=== PATIENT | male | born 1935 | race Caucasian/White ===

== ENCOUNTER 2020-01-12 15:24 | Emergency (ER) | payer MEDICARE, OTHER ==
[2020-01-12 15:44] VITALS: RESP 18; TEMP 98.2
--- NOTE | 2020-01-12 16:38 | ED ---
Fall HPI - General Chief Complaint: Fall Stated Complaint: fall/hit head-2 days ago Time Seen by Provider: 01/12/20 15:40 Source: patient, family Mode of arrival: wheelchair - History of Present Illness Initial Comments: Patient is an 84-year-old male with past history of A. fib, diabetes who presents emergency department after he fell out of bed. Patient reports that 2 days ago she was sleeping in the bed. His head on the floor. He was unable to get up due to chronic weakness in his lower extremities. Laid on the floor for several hours until a neighbor spotted him and got into the house to assist him up. He does take Plavix. He denies having any loss of consciousness. No headaches or visual changes. No neck pain. He had an appointment with his primary care office today. Because the reported blunt head trauma on Plavix I did recommend that he get a CT of his head. Triage note states that the patient is confused however the family at bedside denies this. Patient denies any injuries from his fall. Denies chest pain or shortness of breath. No abdominal pain. Does have some swelling to his lower extremity's. Reports that the right is worse than the left. Normally does not have lower extremity swelling. The right leg has become erythematous. They did place him on antibiotics at his primary care office. States she has not started them yet. Denies a history of DVT or PE. Does report a history of congestive heart failure. Denies any chest pain or shortness of breath. No fevers or chills. No alleviating, precipitating or modifying factors - Related Data Allergies Allergy/AdvReac Type Severity Reaction Status Date / Time No Known Allergies Allergy Verified 01/12/20 15:43 Review of Systems ROS Statement: Those systems with pertinent positive or pertinent negative responses have been documented in the HPI. ROS Other: All systems not noted in ROS Statement are negative. Past Medical History Past Medical History: Atrial Fibrillation, Coronary Artery Disease (CAD), Diabetes Mellitus, Hearing Disorder / Deafness, Hypertension, Myocardial Infarction (ID) Additional Past Medical History / Comment(s): Chronic right leg cellulitis History of Any Multi-Drug Resistant Organisms: None Reported Past Surgical History: No Surgical Hx Reported Past Psychological History: No Psychological Hx Reported Smoking Status: Former smoker Past Alcohol Use History: None Reported Past Drug Use History: None Reported General Exam Limitations: no limitations, physical limitation General appearance: alert, in no apparent distress Head exam: Present: atraumatic, normocephalic, normal inspection Eye exam: Present: normal appearance, PERRL, EOMI. Absent: scleral icterus, conjunctival injection, periorbital swelling ENT exam: Present: normal exam, mucous membranes moist Neck exam: Present: normal inspection. Absent: tenderness, meningismus, lymphadenopathy Respiratory exam: Present: normal lung sounds bilaterally. Absent: respiratory distress, wheezes, rales, rhonchi, stridor Cardiovascular Exam: Present: regular rate, normal rhythm, normal heart sounds. Absent: systolic murmur, diastolic murmur, rubs, gallop, clicks GI/Abdominal exam: Present: soft, normal bowel sounds. Absent: distended, tenderness, guarding, rebound, rigid Extremities exam: Present: full ROM, normal capillary refill, pedal edema (right > left. Right anterior kearns is red and erythematous). Absent: tenderness, joint swelling, calf tenderness Back exam: Present: normal inspection Neurological exam: Present: alert, oriented X3, CN II-XII intact Psychiatric exam: Present: normal affect, normal mood Skin exam: Present: warm, dry, intact, normal color. Absent: rash Course Vital Signs 01/12/20 01/12/20 15:36 18:48 Temperature 98.2 F 98.2 F Pulse Rate 79 70 Respiratory 18 18 Rate Blood Pressure 102/78 134/78 O2 Sat by Pulse 100 96 Oximetry Medical Decision Making - Medical Decision Making The patient is placed in room 16. A thorough history and physical exam was performed. Peripheral IV is established. Laboratory studies were conducted. Doppler ultrasound of the right lower extremity is performed. Patient also went for a CT of his cervical spine. Laboratory studies remarkable for a normal creatinine of 0.97. BNP is 438. Venous Doppler of the right lower extremity fails to demonstrate a DVT. CT of the patient's brain and cervical spine demonstrates age-related atrophic and chronic small vessel ischemia without acute intracranial process. No evidence for acute fracture subluxation in the cervical spine. Results are relayed to the patient. I did recommend compression dressings the lower extremities due to the edema. He was given a perception for Keflex 4 times a day for she do believe the patient needs to take for his overlying cellulitis. I will write him a prescription for compression stockings. Patient is to follow-up with his primary care physician. August require diuresis. If he has any new or worsening symptoms he should return to the emergency room. Patient was discharged home in stable condition - Lab Data Result diagrams: 01/12/20 16:07 01/12/20 16:07 Lab Results 01/12/20 01/12/20 01/12/20 Range/Units 16:07 16:07 16:07 WBC 7.2 (3.8-10.6) k/uL RBC 4.47 (4.30-5.90) m/uL Hgb 13.9 (13.0-17.5) gm/dL Hct 43.7 (39.0-53.0) % MCV 97.7 (80.0-100.0) fL MCH 31.2 (25.0-35.0) pg MCHC 31.9 (31.0-37.0) g/dL RDW 12.9 (11.5-15.5) % Plt Count 192 (150-450) k/uL Neutrophils % 80 % Lymphocytes % 11 % Monocytes % 5 % Eosinophils % 2 % Basophils % 0 % Neutrophils # 5.7 (1.3-7.7) k/uL Lymphocytes # 0.8 L (1.0-4.8) k/uL Monocytes # 0.4 (0-1.0) k/uL Eosinophils # 0.1 (0-0.7) k/uL Basophils # 0.0 (0-0.2) k/uL Sodium 136 L (137-145) mmol/L Potassium 4.7 (3.5-5.1) mmol/L Chloride 102 (98-107) mmol/L Carbon Dioxide 29 (22-30) mmol/L Anion Gap 5 mmol/L BUN 21 H (9-20) mg/dL Creatinine 0.97 (0.66-1.25) mg/dL Est GFR (CKD-EPI)AfAm 82 (>60 ml/min/1.73 sqM) Est GFR (CKD-EPI)NonAf 71 (>60 ml/min/1.73 sqM) Glucose 151 H (74-99) mg/dL Calcium 8.9 (8.4-10.2) mg/dL Total Bilirubin 1.2 (0.2-1.3) mg/dL AST 41 (17-59) U/L ALT 30 (4-49) U/L Alkaline Phosphatase 67 (38-126) U/L NT-Pro-B Natriuret Pep 438 pg/mL Total Protein 6.5 (6.3-8.2) g/dL Albumin 3.5 (3.5-5.0) g/dL Disposition Clinical Impression: Fall, Blunt head trauma, Swelling of lower extremity Disposition: HOME SELF-CARE Condition: Stable Instructions (If sedation given, give patient instructions): Leg Edema (ED), Fall Prevention (ED) Additional Instructions: Rest and elevate your legs. Wear the compression stockings. Follow up with your primary care. They may consider placing you on a diuretic (water pill) for your lower extremity swelling. Take antibiotic as directed. Return to the emergency room for any new or worsening symptoms Is patient prescribed a controlled substance at d/c from ED?: No Referrals: Mery Hooper MD [Primary Care Provider] - 1-2 days Time of Disposition: 18:23
--- NOTE | 2020-01-12 16:52 | CT ---
EXAMINATION TYPE: CT brain niurka turk DATE OF EXAM: 01/12/2020 COMPARISON: None HISTORY: Fall [address] DLP: 1843.[address] of the brain was performed. The ventricles, basal cisterns and sulci overlying the cerebral convexities demonstrate mild to moder ate enlargement. There is no evidence for intracranial hemorrhage or sulcal effacement. There is decreased attenuatio n about the periventricular white matter and deep white matter of both cerebral hemispheres, compatib le with chronic small vessel ischemia. No mass effects are seen. If symptoms persist consider MRI. Osseous calvarium is intact. IMPRESSION: 1. Age related atrophic and chronic small vessel ischemic change without acute intracranial process seen at this time. CT Cervical Spine: Unenhanced CT of the cervical spine was performed with bone and soft tissue window settings submitted . Coronal and sagittal reconstruction is obtained. There is normal alignment and prevertebral soft tissues. No evidence for acute cervical fracture . Scattered degenerative disc disease and spondylosis. Biapical scarring. IMPRESSION: 1. No evidence for acute fracture or subluxation of the cervical spine.
--- NOTE | 2020-01-12 17:18 | US ---
EXAMINATION TYPE: US venous doppler duplex LE RT DATE OF EXAM: 01/12/2020 5:11 PM COMPARISON: NONE CLINICAL HISTORY: swelling, redness. SIDE PERFORMED: Right TECHNIQUE: The lower extremity deep venous system is examined utilizing real time linear array sonog mari with graded compression, doppler sonography and color-flow sonography. VESSELS IMAGED: External Iliac Vein (EIV) Common Femoral Vein Deep Femoral Vein Greater Saphenous Vein * Femoral Vein Popliteal Vein Small Saphenous Vein * Proximal Calf Veins (* superficial vessels) There is normal flow, compressibility, vascular waveforms. Right Leg: Negative for DVT IMPRESSION: No evident deep venous thrombosis at or above the right knee
[2020-01-12 17:20] LABS: Basophils % (A) 0 %; Eosinophils # (A) 0.1 k/uL (0-0.7); Eosinophils % (A) 2 %; HCT 43.7 % (39.0-53.0); HGB 13.9 gm/dL (13.0-17.5); Lymphocytes # (A) 0.8 k/uL (1.0-4.8); Lymphocytes % (A) 11 %; MCH 31.2 pg (25.0-35.0); MCHC 31.9 g/dL (31.0-37.0); MCV 97.7 fL (80.0-100.0); Mean Platelet Volume 7.4; Monocytes # (A) 0.4 k/uL (0-1.0); Monocytes % (A) 5 %; Neutrophils # (A) 5.7 k/uL (1.3-7.7); Neutrophils % (A) 80 %; Platelet Count 192 k/uL (150-450); RBC 4.47 m/uL (4.30-5.90); RDW 12.9 % (11.5-15.5); WBC 7.2 k/uL (3.8-10.6)
[2020-01-12 17:41] LABS: Albumin 3.5 g/dL (3.5-5.0); Calcium 8.9 mg/dL (8.4-10.2); Potassium 4.7 mmol/L (3.5-5.1); Total Bilirubin 1.2 mg/dL (0.2-1.3); Total Protein 6.5 g/dL (6.3-8.2)
[2020-01-12 18:49] VITALS: BP 134/78; PULSE 70
== END 2020-01-12 18:49 | disposition home or self-care (01) ==
LOC: EC 15:24
DX: S09.90XA Unspecified injury of head, initial encounter (principal); M79.89 Other specified soft tissue disorders; G31.1 Senile degeneration of brain, not elsewhere classified; I67.82 Cerebral ischemia; H91.90 Unspecified hearing loss, unspecified ear; I25.2 Old myocardial infarction; Z87.891 Personal history of nicotine dependence; W06.XXXA Fall from bed, initial encounter; Y93.84 Activity, sleeping; Y92.009 Unspecified place in unspecified non-institutional (private) residence as the place of occurrence of the external cause
CPT/HCPCS: 36415; 70450; 72125; 80053; 83880; 85025; 99284

== ENCOUNTER 2020-07-09 20:39 | Emergency (ER) | payer OTHER ==
--- NOTE | 2020-07-09 21:37 | ED ---
Weakness HPI - General Chief complaint: Weakness Stated complaint: Weakness Time Seen by Provider: 07/09/20 21:01 Source: patient, EMS Mode of arrival: EMS Limitations: no limitations - History of Present Illness Initial comments: This patient is an 85-year-old man who is here to be evaluated for generalized weakness and fatigue. Most of the history comes from the patient's daughter. She states that she checks on him regularly but he currently lives alone. When I interview the patient, he states that he is just here for checkup. He states that he is feeling pretty well. He denies pain. He denies dyspnea. Patient's daughter states that she suspects he has been having low-grade fevers going back probably about 3 days. He has been less active. Today he did not get up out of his chair. The patient in addition appears to not have urinated today and she is concerned about possibility of dehydration. In addition patient's blood sugars of been running high up to nearly 200 this morning and then when rechecked tonight down to 48. Patient's daughter has not noted any focal weakness, just that the patient appears to be generally weak, fatigued, and somewhat confused. Complaint: generalized weakness, lack of energy -: days(s) Location: generalized Improves with: none Worsens with: none - Related Data Allergies Allergy/AdvReac Type Severity Reaction Status Date / Time No Known Allergies Allergy Verified 01/12/20 15:43 Review of Systems ROS Statement: Those systems with pertinent positive or pertinent negative responses have been documented in the HPI. ROS Other: All systems not noted in ROS Statement are negative. Constitutional: Reports: fever, weakness. Denies: chills Eyes: Denies: vision change Respiratory: Reports: wheezes. Denies: cough, dyspnea Cardiovascular: Denies: chest pain, orthopnea, edema Gastrointestinal: Denies: abdominal pain, vomiting, diarrhea Genitourinary: Denies: dysuria, hematuria Musculoskeletal: Denies: back pain Skin: Denies: rash Neurological: Denies: headache, weakness, numbness Past Medical History Past Medical History: Atrial Fibrillation, Coronary Artery Disease (CAD), Diabetes Mellitus, Hearing Disorder / Deafness, Hypertension, Myocardial Infarction ([place]) Additional Past Medical History / Comment(s): Chronic right leg cellulitis History of Any Multi-Drug Resistant Organisms: None Reported Past Surgical History: No Surgical Hx Reported Past Psychological History: No Psychological Hx Reported Smoking Status: Former smoker Past Alcohol Use History: None Reported Past Drug Use History: None Reported General Exam Limitations: no limitations General appearance: alert, in no apparent distress Head exam: Present: atraumatic, normocephalic Eye exam: Present: normal appearance. Absent: scleral icterus, conjunctival injection ENT exam: Present: mucous membranes dry, normal external ear exam, other (Cerumen bilaterally) Neck exam: Present: normal inspection, full ROM. Absent: meningismus Respiratory exam: Present: wheezes (Trace wheeze throughout). Absent: respiratory distress, rales, rhonchi, stridor, accessory muscle use, decreased breath sounds Cardiovascular Exam: Present: regular rate, normal rhythm, normal heart sounds. Absent: systolic murmur, diastolic murmur, rubs, gallop GI/Abdominal exam: Present: soft, hernia (There is an umbilical hernia which is soft, reducible, nontender). Absent: distended, tenderness, guarding, rebound, rigid, mass Extremities exam: Present: normal inspection, normal capillary refill. Absent: pedal edema, calf tenderness Back exam: Present: normal inspection. Absent: CVA tenderness (R), CVA tenderness (L) Neurological exam: Present: alert. Absent: oriented X3 (Patient is oriented person, recognizes he is in a medical facility, could not state the date), motor sensory deficit Skin exam: Present: warm, dry, intact, normal color. Absent: rash Course Vital Signs 07/09/20 07/10/20 20:42 01:46 Temperature 98.6 F 98.9 F Pulse Rate 78 87 Respiratory 20 18 Rate Blood Pressure 138/77 117/46 O2 Sat by Pulse 96 95 Oximetry Medical Decision Making - Medical Decision Making Patient is an 85-year-old man with covid 19 infection. I discussed risks and benefits of administering monoclonal antibodies, and at this point they declined to have this therapy. Discussed admission for observation given his generalized weakness, but the patient was feeling better after fever came down and fluids. They will continue as outpatient, discussed appropriate further care and return parameters. - Lab Data Result diagrams: 07/09/20 22:05 07/09/20 22:05 Lab Results 07/09/20 07/09/20 07/09/20 Range/Units 22:05 22:05 22:05 WBC 3.1 L (3.8-10.6) k/uL RBC 4.47 (4.30-5.90) m/uL Hgb 14.4 (13.0-17.5) gm/dL Hct 41.6 (39.0-53.0) % MCV 92.9 (80.0-100.0) fL MCH 32.2 (25.0-35.0) pg MCHC 34.7 (31.0-37.0) g/dL RDW 13.8 (11.5-15.5) % Plt Count 88 L (150-450) k/uL MPV 8.6 Lymphocytes % 11 % Monocytes % 6 % Eosinophils % 1 % Basophils % 1 % Neutrophils # 2.5 (1.3-7.7) k/uL Lymphocytes # 0.3 L (1.0-4.8) k/uL Monocytes # 0.2 (0-1.0) k/uL Eosinophils # 0.0 (0-0.7) k/uL Basophils # 0.0 (0-0.2) k/uL Manual Slide Review Performed Anisocytosis (manual) Present PT 9.9 (9.0-12.0) sec INR 0.9 (<1.2) APTT 26.2 (22.0-30.0) sec Sodium 131 L (137-145) mmol/L Potassium 4.9 (3.5-5.1) mmol/L Chloride 98 (98-107) mmol/L Carbon Dioxide 28 (22-30) mmol/L Anion Gap 5 mmol/L BUN 18 (9-20) mg/dL Creatinine 0.85 (0.66-1.25) mg/dL Est GFR (CKD-EPI)AfAm >90 (>60 ml/min/1.73 sqM) Est GFR (CKD-EPI)NonAf 78 (>60 ml/min/1.73 sqM) Glucose 145 H (74-99) mg/dL Plasma Lactic Acid Esteban (0.7-2.0) mmol/L Calcium 8.4 (8.4-10.2) mg/dL Magnesium 1.8 (1.6-2.3) mg/dL Total Bilirubin 0.9 (0.2-1.3) mg/dL AST 56 (17-59) U/L ALT 24 (4-49) U/L Alkaline Phosphatase 45 (38-126) U/L Troponin I (0.000-0.034) ng/mL NT-Pro-B Natriuret Pep pg/mL Total Protein 6.5 (6.3-8.2) g/dL Albumin 3.4 L (3.5-5.0) g/dL Coronavirus (PCR) (Not Detectd) 07/09/20 07/09/20 07/09/20 Range/Units 22:05 22:05 22:05 WBC (3.8-10.6) k/uL RBC (4.30-5.90) m/uL Hgb (13.0-17.5) gm/dL Hct (39.0-53.0) % MCV (80.0-100.0) fL MCH (25.0-35.0) pg MCHC (31.0-37.0) g/dL RDW (11.5-15.5) % Plt Count (150-450) k/uL MPV Lymphocytes % % Monocytes % % Eosinophils % % Basophils % % Neutrophils # (1.3-7.7) k/uL Lymphocytes # (1.0-4.8) k/uL Monocytes # (0-1.0) k/uL Eosinophils # (0-0.7) k/uL Basophils # (0-0.2) k/uL Manual Slide Review Anisocytosis (manual) PT (9.0-12.0) sec INR (<1.2) APTT (22.0-30.0) sec Sodium (137-145) mmol/L Potassium (3.5-5.1) mmol/L Chloride (98-107) mmol/L Carbon Dioxide (22-30) mmol/L Anion Gap mmol/L BUN (9-20) mg/dL Creatinine (0.66-1.25) mg/dL Est GFR (CKD-EPI)AfAm (>60 ml/min/1.73 sqM) Est GFR (CKD-EPI)NonAf (>60 ml/min/1.73 sqM) Glucose (74-99) mg/dL Plasma Lactic Acid Esteban 1.6 (0.7-2.0) mmol/L Calcium (8.4-10.2) mg/dL Magnesium (1.6-2.3) mg/dL Total Bilirubin (0.2-1.3) mg/dL AST (17-59) U/L ALT (4-49) U/L Alkaline Phosphatase (38-126) U/L Troponin I 0.015 (0.000-0.034) ng/mL NT-Pro-B Natriuret Pep 517 pg/mL Total Protein (6.3-8.2) g/dL Albumin (3.5-5.0) g/dL Coronavirus (PCR) (Not Detectd) 07/09/20 Range/Units 22:05 WBC (3.8-10.6) k/uL RBC (4.30-5.90) m/uL Hgb (13.0-17.5) gm/dL Hct (39.0-53.0) % MCV (80.0-100.0) fL MCH (25.0-35.0) pg MCHC (31.0-37.0) g/dL RDW (11.5-15.5) % Plt Count (150-450) k/uL MPV Lymphocytes % % Monocytes % % Eosinophils % % Basophils % % Neutrophils # (1.3-7.7) k/uL Lymphocytes # (1.0-4.8) k/uL Monocytes # (0-1.0) k/uL Eosinophils # (0-0.7) k/uL Basophils # (0-0.2) k/uL Manual Slide Review Anisocytosis (manual) PT (9.0-12.0) sec INR (<1.2) APTT (22.0-30.0) sec Sodium (137-145) mmol/L Potassium (3.5-5.1) mmol/L Chloride (98-107) mmol/L Carbon Dioxide (22-30) mmol/L Anion Gap mmol/L BUN (9-20) mg/dL Creatinine (0.66-1.25) mg/dL Est GFR (CKD-EPI)AfAm (>60 ml/min/1.73 sqM) Est GFR (CKD-EPI)NonAf (>60 ml/min/1.73 sqM) Glucose (74-99) mg/dL Plasma Lactic Acid Esteban (0.7-2.0) mmol/L Calcium (8.4-10.2) mg/dL Magnesium (1.6-2.3) mg/dL Total Bilirubin (0.2-1.3) mg/dL AST (17-59) U/L ALT (4-49) U/L Alkaline Phosphatase (38-126) U/L Troponin I (0.000-0.034) ng/mL NT-Pro-B Natriuret Pep pg/mL Total Protein (6.3-8.2) g/dL Albumin (3.5-5.0) g/dL Coronavirus (PCR) Detected A (Not Detectd) Disposition Clinical Impression: COVID-19 Disposition: HOME SELF-CARE Condition: Good Instructions (If sedation given, give patient instructions): Coronavirus Disease 2019 (COVID-19) Is patient prescribed a controlled substance at d/c from ED?: No Referrals: Donna Jimenez DO [Primary Care Provider] - 1-2 days
--- NOTE | 2020-07-09 21:47 | XR ---
EXAMINATION TYPE: XR chest 1V portable DATE OF EXAM: 07/09/2020 COMPARISON: NONE HISTORY: Weakness confusion TECHNIQUE: Single view FINDINGS: Heart is probably enlarged. There is some patchy pulmonary interstitial edema. Small pleura l effusions are possible. Bony thorax is intact IMPRESSION: There is some pulmonary interstitial edema that could relate to heart failure or acute in terstitial pneumonia.
[2020-07-09 22:27] LABS: ALT 24 U/L (4-49); AST 56 U/L (17-59); African American GFR (CKD) >90 (>60 ml/min/1.73 sqM); Albumin 3.4 g/dL (3.5-5.0); Alkaline Phosphatase 45 U/L (38-126); Anion Gap 5 mmol/L; Blood Urea Nitrogen 18 mg/dL (9-20); Calcium 8.4 mg/dL (8.4-10.2); Carbon Dioxide 28 mmol/L (22-30); Chloride 98 mmol/L (98-107); Glucose 145 mg/dL (74-99); Magnesium 1.8 mg/dL (1.6-2.3); Non-African American GFR(CKD) 78 (>60 ml/min/1.73 sqM); Sodium 131 mmol/L (137-145); Total Bilirubin 0.9 mg/dL (0.2-1.3); Total Protein 6.5 g/dL (6.3-8.2)
[2020-07-09 22:29] LABS: Potassium 4.9 mmol/L (3.5-5.1)
[2020-07-09 22:33] LABS: INR 0.9 (<1.2); Partial Thromboplastin Time 26.2 sec (22.0-30.0); Prothrombin Time 9.9 sec (9.0-12.0)
[2020-07-09 23:03] LABS: Basophils % (A) 1 %; Eosinophils % (A) 1 %; HCT 41.6 % (39.0-53.0); HGB 14.4 gm/dL (13.0-17.5); Lymphocytes # (A) 0.3 k/uL (1.0-4.8); Lymphocytes % (A) 11 %; MCH 32.2 pg (25.0-35.0); MCHC 34.7 g/dL (31.0-37.0); MCV 92.9 fL (80.0-100.0); Mean Platelet Volume 8.6; Monocytes # (A) 0.2 k/uL (0-1.0); Monocytes % (A) 6 %; Neutrophils # (A) 2.5 k/uL (1.3-7.7); RBC 4.47 m/uL (4.30-5.90); RDW 13.8 % (11.5-15.5); WBC 3.1 k/uL (3.8-10.6)
[2020-07-10 00:39] LABS: Platelet Count 88 k/uL (150-450)
[2020-07-10 00:40] LABS: Anisocytosis (M) Present
[2020-07-10 01:47] VITALS: BP 117/46; PULSE 87; RESP 18; TEMP 98.9
== END 2020-07-10 01:47 | disposition home or self-care (01) ==
LOC: EC 20:39
DX: U07.1 COVID-19 (principal); I48.91 Unspecified atrial fibrillation; I25.10 Atherosclerotic heart disease of native coronary artery without angina pectoris; E11.9 Type 2 diabetes mellitus without complications; I10 Essential (primary) hypertension; I25.2 Old myocardial infarction; Z87.891 Personal history of nicotine dependence
CPT/HCPCS: 71045; 80053; 83605; 83735; 83880; 84484; 85025; 85610; 85730; 87635; 93005; 99285

== ENCOUNTER 2021-02-22 20:30 | Inpatient (IN) | payer MEDICARE ==
--- NOTE | 2021-02-22 21:44 | XR ---
EXAMINATION TYPE: XR chest 2V DATE OF EXAM: 02/22/2021 CLINICAL HISTORY: Weakness. TECHNIQUE: Frontal and lateral view of the chest. COMPARISON: 07/09/2020 FINDINGS: Redemonstrated cardiomegaly. Pulmonary vasculature is normal. There is no focal air space o pacity. No pleural effusion. No pneumothorax seen. No acute displaced osseous fracture. Degenerative changes of the right shoulder and spine. IMPRESSION: Redemonstrated cardiomegaly. No acute pulmonary process.
--- NOTE | 2021-02-22 21:47 | XR ---
EXAMINATION TYPE: XR shoulder complete RT DATE OF EXAM: 02/22/2021 CLINICAL HISTORY: fall. TECHNIQUE: Internal rotation, external rotation, and scapular Y views of the right shoulder are obtai sandro. COMPARISON: None FINDINGS: There is no acute fracture/dislocation evident. Degenerative change of the glenohumeral an d acromial clavicular joint. Normal osseous mineralization. The overlying soft tissue appears unremar kable. IMPRESSION: No acute fracture or dislocation of the right shoulder.
--- NOTE | 2021-02-22 22:00 | CT ---
EXAMINATION TYPE: CT brain wo con DATE OF EXAM: 02/22/2021 HISTORY: ams, multiple recent falls. CT DLP: 1235.4 mGycm. Automated Exposure Control for Dose Reduction was Utilized. TECHNIQUE: CT scan of the head is performed without contrast. COMPARISON: 01/12/2020 FINDINGS: There is no acute intracranial hemorrhage, midline shift, or mass effect identified. No abnormal extr a-axial fluid collection. Generalized volume loss. There is redemonstrated prominence of the ventricl es unchanged versus 01/12/2020. Patchy white matter hypodensities likely sequela of chronic microvascu lar ischemic change. No depressed arterial fracture. Visualized sinuses and mastoid air cells are ernie ar. IMPRESSION: No acute intracranial hemorrhage, midline shift, or mass effect.
[2021-02-22 22:21] LABS: Basophils % (A) 0 %; Eosinophils % (A) 1 %; HCT 39.9 % (39.0-53.0); HGB 13.6 gm/dL (13.0-17.5); Lymphocytes # (A) 0.7 k/uL (1.0-4.8); Lymphocytes % (A) 11 %; MCH 32.4 pg (25.0-35.0); MCHC 34.1 g/dL (31.0-37.0); Mean Platelet Volume 7.6; Monocytes # (A) 0.4 k/uL (0-1.0); Monocytes % (A) 7 %; Neutrophils # (A) 4.9 k/uL (1.3-7.7); Neutrophils % (A) 79 %; Platelet Count 169 k/uL (150-450); RDW 14.1 % (11.5-15.5); WBC 6.2 k/uL (3.8-10.6)
--- NOTE | 2021-02-22 22:23 | ED ---
General Adult HPI - General Chief complaint: Fall Stated complaint: Fall, Weakness Time Seen by Provider: 02/22/21 20:35 Source: patient, family, EMS, RN notes reviewed, old records reviewed Mode of arrival: EMS - History of Present Illness Initial comments: 85 yo male presenting with multiple falls, generalized weakness. The weakness has progressed over the course of several weeks. He had 2 falls today. His daughter who is at bedside to state he had a little it of mild effusion but this is mostly resolved. No reported fever. The patient self complains of some right shoulder pain. No head or neck trauma. No abdominal pain nausea vomiting. - Related Data Home Medications Medication Instructions Recorded Confirmed Ascorbic Acid [Vitamin C] 500 mg PO DAILY 02/22/21 02/22/21 Aspirin EC [Ecotrin Low Dose] 81 mg PO DAILY 02/22/21 02/22/21 Cholecalciferol [Vitamin D3 (25 50 mcg PO DAILY 02/22/21 02/22/21 Mcg = 1000 Iu)] Finasteride [Proscar] 5 mg PO DAILY 02/22/21 02/22/21 Gabapentin [Neurontin] 100 mg PO TID 02/22/21 02/22/21 Insulin Aspart [NovoLOG Flexpen] 40 units SQ TID-W/MEALS 02/22/21 02/22/21 Insulin Detemir [Levemir Flextouch 45 units SQ BID 02/22/21 02/22/21 Pen] Liraglutide [Victoza 3-Jarred] 1.2 mg SQ DAILY 02/22/21 02/22/21 Multivitamins, Thera [Multivitamin 1 tab PO DAILY 02/22/21 02/22/21 (formulary)] [place]-3 Fatty Acids/Fish Oil [Fish 1 cap PO DAILY 02/22/21 02/22/21 Oil 1,000 mg Softgel] Sertraline [Zoloft] 50 mg PO DAILY 02/22/21 02/22/21 Tamsulosin HCl [Flomax] 0.4 mg PO DAILY 02/22/21 02/22/21 Allergies Allergy/AdvReac Type Severity Reaction Status Date / Time Penicillins Allergy Unknown Verified 02/22/21 23:01 Sulfa (Sulfonamide Allergy Unknown Verified 02/22/21 23:01 Antibiotics) Review of Systems ROS Statement: Those systems with pertinent positive or pertinent negative responses have been documented in the HPI. ROS Other: All systems not noted in ROS Statement are negative. Past Medical History Past Medical History: Atrial Fibrillation, Coronary Artery Disease (CAD), Diabetes Mellitus, Hearing Disorder / Deafness, Hypertension, Myocardial Infarction ([place]) Additional Past Medical History / Comment(s): Chronic right leg cellulitis History of Any Multi-Drug Resistant Organisms: None Reported Past Surgical History: No Surgical Hx Reported Past Psychological History: No Psychological Hx Reported Smoking Status: Former smoker Past Alcohol Use History: None Reported Past Drug Use History: None Reported General Exam General appearance: alert, in no apparent distress Head exam: Present: atraumatic, normocephalic Eye exam: Present: normal appearance, PERRL ENT exam: Present: mucous membranes dry Neck exam: Absent: normal inspection, tenderness, meningismus Respiratory exam: Present: normal lung sounds bilaterally. Absent: respiratory distress, wheezes Cardiovascular Exam: Present: regular rate, irregular rhythm GI/Abdominal exam: Present: soft. Absent: distended, tenderness, guarding Extremities exam: Present: normal capillary refill, other (Some chronic venous stasis) Neurological exam: Present: alert, oriented X3, CN II-XII intact. Absent: motor sensory deficit Psychiatric exam: Present: normal affect, normal mood Skin exam: Present: warm, dry, intact Course Vital Signs 02/22/21 21:30 Temperature 97.8 F Pulse Rate 85 Respiratory 16 Rate Blood Pressure 129/71 O2 Sat by Pulse 97 Oximetry EKG Findings - EKG Comments: EKG Findings:: EKG: Atrial fibrillation, rate of 69, QRS duration 88, QTC 435, no ST segment elevation Medical Decision Making - Medical Decision Making 85-year-old male with generalized weakness, and several falls. Head CT performed which is negative for intracranial hemorrhage or mass effect, chest x- ray negative for acute cardiopulmonary disease. X-ray of the right shoulder wh ich is negative for traumatic injury. Patient has a normal CBC, normal CMP. Urinalysis pending Patient patient will be admitted for generalized weakness, multiple falls. He may require rehabilitation. Physical therapy placed on consult. Case discussed with Gerda kemp for [facility] - Lab Data Result diagrams: 02/22/21 21:41 02/22/21 21:41 Lab Results 02/22/21 02/22/21 02/22/21 Range/Units 21:41 21:41 21:41 WBC 6.2 (3.8-10.6) k/uL RBC 4.20 L (4.30-5.90) m/uL Hgb 13.6 (13.0-17.5) gm/dL Hct 39.9 (39.0-53.0) % MCV 95.0 (80.0-100.0) fL MCH 32.4 (25.0-35.0) pg MCHC 34.1 (31.0-37.0) g/dL RDW 14.1 (11.5-15.5) % Plt Count 169 (150-450) k/uL MPV 7.6 Neutrophils % 79 % Lymphocytes % 11 % Monocytes % 7 % Eosinophils % 1 % Basophils % 0 % Neutrophils # 4.9 (1.3-7.7) k/uL Lymphocytes # 0.7 L (1.0-4.8) k/uL Monocytes # 0.4 (0-1.0) k/uL Eosinophils # 0.0 (0-0.7) k/uL Basophils # 0.0 (0-0.2) k/uL PT 10.6 (9.0-12.0) sec INR 1.0 (<1.2) APTT 24.6 (22.0-30.0) sec Sodium 137 (137-145) mmol/L Potassium 4.3 (3.5-5.1) mmol/L Chloride 103 (98-107) mmol/L Carbon Dioxide 29 (22-30) mmol/L Anion Gap 5 mmol/L BUN 27 H (9-20) mg/dL Creatinine 1.04 (0.66-1.25) mg/dL Est GFR (CKD-EPI)AfAm 75 (>60 ml/min/1.73 sqM) Est GFR (CKD-EPI)NonAf 65 (>60 ml/min/1.73 sqM) Glucose 101 H (74-99) mg/dL Plasma Lactic Acid Esteban (0.7-2.0) mmol/L Calcium 9.5 (8.4-10.2) mg/dL Magnesium 1.9 (1.6-2.3) mg/dL Total Bilirubin 0.7 (0.2-1.3) mg/dL AST 35 (17-59) U/L ALT 21 (4-49) U/L Alkaline Phosphatase 72 (38-126) U/L Troponin I (0.000-0.034) ng/mL Total Protein 6.9 (6.3-8.2) g/dL Albumin 3.6 (3.5-5.0) g/dL 02/22/21 02/22/21 Range/Units 21:41 21:41 WBC (3.8-10.6) k/uL RBC (4.30-5.90) m/uL Hgb (13.0-17.5) gm/dL Hct (39.0-53.0) % MCV (80.0-100.0) fL MCH (25.0-35.0) pg MCHC (31.0-37.0) g/dL RDW (11.5-15.5) % Plt Count (150-450) k/uL MPV Neutrophils % % Lymphocytes % % Monocytes % % Eosinophils % % Basophils % % Neutrophils # (1.3-7.7) k/uL Lymphocytes # (1.0-4.8) k/uL Monocytes # (0-1.0) k/uL Eosinophils # (0-0.7) k/uL Basophils # (0-0.2) k/uL PT (9.0-12.0) sec INR (<1.2) APTT (22.0-30.0) sec Sodium (137-145) mmol/L Potassium (3.5-5.1) mmol/L Chloride (98-107) mmol/L Carbon Dioxide (22-30) mmol/L Anion Gap mmol/L BUN (9-20) mg/dL Creatinine (0.66-1.25) mg/dL Est GFR (CKD-EPI)AfAm (>60 ml/min/1.73 sqM) Est GFR (CKD-EPI)NonAf (>60 ml/min/1.73 sqM) Glucose (74-99) mg/dL Plasma Lactic Acid Esteban 1.6 (0.7-2.0) mmol/L Calcium (8.4-10.2) mg/dL Magnesium (1.6-2.3) mg/dL Total Bilirubin (0.2-1.3) mg/dL AST (17-59) U/L ALT (4-49) U/L Alkaline Phosphatase (38-126) U/L Troponin I 0.033 (0.000-0.034) ng/mL Total Protein (6.3-8.2) g/dL Albumin (3.5-5.0) g/dL Disposition Clinical Impression: Fall, Generalized weakness Disposition: ADMITTED IP TO THIS HOSP Condition: Stable Is patient prescribed a controlled substance at d/c from ED?: No Referrals: Donna Jimenez DO [Primary Care Provider] - 1-2 days Decision to Admit Reason: Admit from EC Decision Date: 02/22/21 Decision Time: 23:10
[2021-02-22 22:28] LABS: Albumin 3.6 g/dL (3.5-5.0); Calcium 9.5 mg/dL (8.4-10.2); Magnesium 1.9 mg/dL (1.6-2.3); Potassium 4.3 mmol/L (3.5-5.1); Total Bilirubin 0.7 mg/dL (0.2-1.3); Total Protein 6.9 g/dL (6.3-8.2)
[2021-02-22 22:32] LABS: Partial Thromboplastin Time 24.6 sec (22.0-30.0); Prothrombin Time 10.6 sec (9.0-12.0)
[2021-02-22] MEDS ORDERED: ACETAMINOPHEN TAB 325 MG TAB PO PRN (23:08)
[2021-02-22] MEDS ORDERED: NALOXONE 0.4 MG/ML 1 ML VIAL IV PRN (23:08)
[2021-02-22 23:26] LABS: Appearance,Urine Turbid (Clear); Bacteria,Urine Many /hpf; Bilirubin,Urine Negative (Negative); Blood,Urine Trace (Negative); Color,Urine Yellow; Glucose,Urine (UA) Negative (Negative); Ketones,Urine Negative (Negative); Leukocyte Esterase,Urine Large (Negative); Mucus,Urine Rare /hpf; Nitrite,Urine Positive (Negative); PH, Urine 5.5 (5.0-8.0); Protein,Urine 1+ (Negative); RBC,Urine 6 /hpf (0-5); Specific Gravity,Urine 1.015 (1.001-1.035); Squamous Epithelial Cell,Urine 1 /hpf (0-4); Urobilinogen,Urine <2.0 mg/dL (<2.0); WBC,Urine >182 /hpf (0-5)
[2021-02-22] MEDS ORDERED: cefTRIAXone IN SWFI 1,000 MG/10 ML SYRINGE IVP STA (23:27)
[2021-02-22] MEDS ORDERED: SODIUM CHLORIDE 0.9% 500 ML 500 ML IV ONE (23:27)
[2021-02-23] MEDS: SODIUM CHLORIDE 0.9% 1,000 ML IV SCH (03:38)
[2021-02-23 08:11] LABS: Glucose,Whole Blood 142 mg/dL (75-99)
[2021-02-23] MEDS ORDERED: DEXTROSE 5%-0.9% NACL 1,000 ML IV SCH (08:45)
[2021-02-23] MEDS: TAMSULOSIN 0.4 MG CAP.ER.24H PO SCH (09:11)
[2021-02-23] MEDS: GABAPENTIN 100 MG CAP PO SCH ×3 (09:12→20:34)
[2021-02-23] MEDS: SERTRALINE 50 MG TAB PO SCH (09:12)
[2021-02-23] MEDS: FINASTERIDE 5 MG TAB PO SCH (09:12)
[2021-02-23] MEDS: ASPIRIN 81 MG PO SCH (09:12)
[2021-02-23] MEDS: ASCORBIC ACID 500 MG TAB PO SCH (09:12)
[2021-02-23] MEDS: CHOLECALCIFEROL 25 MCG (1000 IU) TABLET PO SCH (09:12)
[2021-02-23] MEDS: INSULIN DETEMIR (LEVEMIR) 100 UNIT/ML SYR SQ SCH ×2 (09:33→20:35)
--- NOTE | 2021-02-23 11:14 | P.HPIM ---
History of Present Illness This is a pleasant 85 years old male with past medical history of Atrial Fibrillation on anticoagulation, Coronary Artery Disease, Diabetes Mellitus, Hearing Disorder / Deafness, Hypertension, Chronic right leg cellulitis He is a patient of Dr. Fry. Patient is fully awake and oriented to time, place and person. He has been feeling generally weak for about a week and he has been falling down at least twice, without losing consciousness, his daughters to get him up and his weakness was getting gradually worse so he decided to come to emergency room His been complaining of from increased frequency of urination but with no dysuria. He denies chest pain or dyspnea. No headache or unilateral weakness, no numbness. No blurred vision or slurred speech He denies smoking, alcohol or illicit drugs. Vitals are stable. Heart rate 64-84 Labs reviewed showing unremarkable CBC, INR, BMP, liver enzymes. Urine analysis is suspicious for infection Coronavirus not detected. EKG showing atrial fibrillation at 69 Chest x-ray: No acute process CT of the brain: No acute process. Right Shoulder x-ray: No acute fracture or dislocation of the right shoulder Patient was started on ceftriaxone and emergency room and received 500 mL of normal saline Review of Systems CONSTITUTIONAL: No fever, no malaise, no fatigue. HEENT: No recent visual problems or hearing problems. Denied any sore throat. CARDIOVASCULAR: No orthopnea, PND, no palpitations, no syncope. PULMONARY: No shortness of breath, no cough, no hemoptysis. GASTROINTESTINAL: No diarrhea, no nausea, no vomiting, no abdominal pain. Normoactive bowel sounds. NEUROLOGICAL: No headaches, no weakness, no numbness. HEMATOLOGICAL: Denies any bleeding or petechiae. GENITOURINARY: Denies any burning micturition, frequency, or urgency. MUSCULOSKELETAL/RHEUMATOLOGICAL: Denies any joint pain, swelling, or any muscle pain. ENDOCRINE: Denies any polyuria or polydipsia. Past Medical History Past Medical History: Atrial Fibrillation, Coronary Artery Disease (CAD), Diabe taj Mellitus, Hearing Disorder / Deafness, Hypertension, Myocardial Infarction ([place]) Additional Past Medical History / Comment(s): Chronic right leg cellulitis History of Any Multi-Drug Resistant Organisms: None Reported Past Surgical History: No Surgical Hx Reported Past Psychological History: No Psychological Hx Reported Smoking Status: Former smoker Past Alcohol Use History: None Reported Past Drug Use History: None Reported - Past Family History Mother Additional Family Medical History / Comment(s): car accident Father Family Medical History: No Reported History Medications and Allergies Home Medications Medication Instructions Recorded Confirmed Type Ascorbic Acid [Vitamin C] 500 mg PO DAILY 02/22/21 02/22/21 History Aspirin EC [Ecotrin Low Dose] 81 mg PO DAILY 02/22/21 02/22/21 History Cholecalciferol [Vitamin D3 (25 50 mcg PO DAILY 02/22/21 02/22/21 History Mcg = 1000 Iu)] Finasteride [Proscar] 5 mg PO DAILY 02/22/21 02/22/21 History Gabapentin [Neurontin] 100 mg PO TID 02/22/21 02/22/21 History Insulin Aspart [NovoLOG Flexpen] 40 units SQ TID-W/MEALS 02/22/21 02/22/21 History Insulin Detemir [Levemir Flextouch 45 units SQ BID 02/22/21 02/22/21 History Pen] Liraglutide [Victoza 3-Jarred] 1.2 mg SQ DAILY 02/22/21 02/22/21 History Multivitamins, Thera [Multivitamin 1 tab PO DAILY 02/22/21 02/22/21 History (formulary)] [place]-3 Fatty Acids/Fish Oil [Fish 1 cap PO DAILY 02/22/21 02/22/21 History Oil 1,000 mg Softgel] Sertraline [Zoloft] 50 mg PO DAILY 02/22/21 02/22/21 History Tamsulosin HCl [Flomax] 0.4 mg PO DAILY 02/22/21 02/22/21 History Allergies Allergy/AdvReac Type Severity Reaction Status Date / Time Penicillins Allergy Unknown Verified 02/22/21 23:01 Sulfa (Sulfonamide Allergy Unknown Verified 02/22/21 23:01 Antibiotics) Physical Exam Vitals: Vital Signs Temp Pulse Resp BP Pulse Ox 02/23/21 03:44 64 16 110/45 95 02/23/21 01:23 98.2 F 75 16 129/71 95 02/22/21 21:30 97.8 F 85 16 129/71 97 Intake and Output 02/22/21 02/23/21 02/23/21 22:59 06:59 14:59 Other: Weight 159.665 kg -GENERAL: The patient is alert and oriented x3, not in any acute distress.morbidly obese. Generally weak HEENT: Pupils are round and equally reacting to light. EOMI. No scleral icterus. No conjunctival pallor. Normocephalic, atraumatic. No pharyngeal erythema. No thyromegaly. CARDIOVASCULAR: S1 and S2 present. No murmurs, rubs, or gallops. PULMONARY: Chest is clear to auscultation, no wheezing or crackles. ABDOMEN: Soft, nontender, nondistended, normoactive bowel sounds. No palpable organomegaly. MUSCULOSKELETAL: No joint swelling or deformity. EXTREMITIES: No cyanosis, clubbing, or pedal edema. NEUROLOGICAL: Gross neurological examination did not reveal any focal deficits. SKIN: No rashes. No petechiae Results CBC & Chem 7: 02/22/21 21:41 02/22/21 21:41 Labs: Abnormal Lab Results - Last 24 Hours (Table) 02/22/21 02/22/21 02/22/21 Range/Units 21:41 21:41 21:41 RBC 4.20 L (4.30-5.90) m/uL Lymphocytes # 0.7 L (1.0-4.8) k/uL BUN 27 H (9-20) mg/dL Glucose 101 H (74-99) mg/dL POC Glucose (mg/dL) (75-99) mg/dL Urine Protein 1+ H (Negative) Urine Blood Trace H (Negative) Ur Leukocyte Esterase Large H (Negative) Urine RBC 6 H (0-5) /hpf Urine WBC >182 H (0-5) /hpf Urine WBC Clumps Many H (None) /hpf Urine Bacteria Many H (None) /hpf Urine Mucus Rare H (None) /hpf 02/23/21 Range/Units 08:09 RBC (4.30-5.90) m/uL Lymphocytes # (1.0-4.8) k/uL BUN (9-20) mg/dL Glucose (74-99) mg/dL POC Glucose (mg/dL) 142 H (75-99) mg/dL Urine Protein (Negative) Urine Blood (Negative) Ur Leukocyte Esterase (Negative) Urine RBC (0-5) /hpf Urine WBC (0-5) /hpf Urine WBC Clumps (None) /hpf Urine Bacteria (None) /hpf Urine Mucus (None) /hpf Assessment and Plan Assessment: Multiple falls without syncope/presyncope acute urinary tract infection Metabolic encephalopathy secondary to above Chronic atrial fibrillation not on anticoagulation, currently rate is controlled Diabetes Mellitus Hypertension Chronic right leg cellulitis Hearing difficulty History of coronary artery syndrome Morbid obesity with BMI of 47.7 Plan: This is a pleasant 85 years old male who presents with generalized weakness and multiple falls, UTI Continue with ceftriaxone and urine culture Continue with gentle hydration for 24 hours Labs and medication were reviewed.. Continue same treatment. Continue with symptomatic treatment. Resume home medication. Monitor lytes and vitals. DVT and GI prophylaxis. Further recommendations depends on the clinical course of the patient DVT prophylaxis: Subcutaneous heparin GI Prophylaxis: Pepcid PT/OT: Pending Prognosis is guarded
[2021-02-23 12:24] LABS: Glucose,Whole Blood 215 mg/dL (75-99)
[2021-02-23] MEDS: INSULIN ASPART (NovoLOG) 100 UNIT/ML VIAL SQ SCH ×5 (13:11→20:34)
[2021-02-23 17:20] LABS: Glucose,Whole Blood 56 mg/dL (75-99)
[2021-02-23 17:39] LABS: Glucose,Whole Blood 58 mg/dL (75-99)
[2021-02-23 18:01] LABS: Glucose,Whole Blood 157 mg/dL (75-99)
[2021-02-23 20:02] LABS: Glucose,Whole Blood 164 mg/dL (75-99)
[2021-02-23] MEDS ORDERED: MELATONIN 5 MG TABLET PO SCH (23:00)
[2021-02-24] MEDS: SODIUM CHLORIDE 0.9% 1,000 ML IV SCH
[2021-02-24 07:13] LABS: Glucose,Whole Blood 147 mg/dL (75-99)
[2021-02-24] MEDS: INSULIN ASPART (NovoLOG) 100 UNIT/ML VIAL SQ SCH ×7 (08:31→21:04)
[2021-02-24] MEDS: TAMSULOSIN 0.4 MG CAP.ER.24H PO SCH (08:32)
[2021-02-24] MEDS: SERTRALINE 50 MG TAB PO SCH (08:32)
[2021-02-24] MEDS: FINASTERIDE 5 MG TAB PO SCH (08:32)
[2021-02-24] MEDS: ASCORBIC ACID 500 MG TAB PO SCH (08:32)
[2021-02-24] MEDS: ASPIRIN 81 MG PO SCH (08:32)
[2021-02-24] MEDS: CHOLECALCIFEROL 25 MCG (1000 IU) TABLET PO SCH (08:32)
[2021-02-24] MEDS: GABAPENTIN 100 MG CAP PO SCH ×3 (08:32→21:04)
[2021-02-24] MEDS ORDERED: MELATONIN 5 MG TABLET PO PRN (12:01)
--- NOTE | 2021-02-24 12:04 | P.PN ---
Subjective This is a pleasant 85 years old male with past medical history of Atrial Fibrillation on anticoagulation, Coronary Artery Disease, Diabetes Mellitus, Hearing Disorder / Deafness, Hypertension, Chronic right leg cellulitis He is a patient of Dr. Fry. Patient is fully awake and oriented to time, place and person. He has been feeling generally weak for about a week and he has been falling down at least twice, without losing consciousness, his daughters to get him up and his weakness was getting gradually worse so he decided to come to emergency room His been complaining of from increased frequency of urination but with no dysuria. He denies chest pain or dyspnea. No headache or unilateral weakness, no numbness. No blurred vision or slurred speech He denies smoking, alcohol or illicit drugs. Vitals are stable. Heart rate 64-84 Labs reviewed showing unremarkable CBC, INR, BMP, liver enzymes. Urine analysis is suspicious for infection Coronavirus not detected. EKG showing atrial fibrillation at 69 Chest x-ray: No acute process CT of the brain: No acute process. Right Shoulder x-ray: No acute fracture or dislocation of the right shoulder Patient was started on ceftriaxone and emergency room and received 500 mL of normal saline 02/24/2021 Patient is more awake and alert today. Slack his metabolic encephalopathy is improving and resolving. He was sitting on care being cleaned by the aide. He denies any specific complaint however he still complaining of from generalized weakness. He is hemodynamically stable but blood pressure on the high side at 165/75, we started him on low Zartan today. His glucose was on the low side 58 so we lowered his Levemir 30 units twice a day down to 30 units at bedtime and lowered his NovoLog with meals 40 units down to 20 minutes. He remains on ceftriaxone and pending final results of urine culture. PT/OT recommended subacute rehab, professor of social work consulted Objective - Vital Signs Vital signs: Vital Signs Temp 98.2 F 02/24/21 04:11 Pulse 81 02/24/21 04:11 Resp 18 02/24/21 04:11 BP 165/75 02/24/21 04:11 Pulse Ox 96 02/24/21 04:11 Intake & Output 02/23/21 02/24/21 02/24/21 18:59 06:59 18:59 Intake Total 240 650 Output Total 211 Balance 240 439 Weight 159.665 kg Intake: Intake, IV Titration 240 50 Amount Sodium Chloride 0.9% 1, 240 000 ml @ 20 mls/hr IV . Q24H JAQUI Rx#:[id number] cefTRIAXone 1 gm In 50 Sodium Chloride 0.9% 50 ml @ 100 mls/hr IVPB Q24H JAQUI Rx#:[id number] Oral 600 Output: Post Void Residual 211 Other: Voiding Method Urinal Urinal Urinal Diaper Diaper Diaper # Voids 4 2 - Exam -GENERAL: The patient is alert and oriented x3, not in any acute distress.morbidly obese. Generally weak HEENT: Pupils are round and equally reacting to light. EOMI. No scleral icterus. No conjunctival pallor. Normocephalic, atraumatic. No pharyngeal erythema. No thyromegaly. CARDIOVASCULAR: S1 and S2 present. No murmurs, rubs, or gallops. PULMONARY: Chest is clear to auscultation, no wheezing or crackles. ABDOMEN: Soft, nontender, nondistended, normoactive bowel sounds. No palpable organomegaly. MUSCULOSKELETAL: No joint swelling or deformity. EXTREMITIES: No cyanosis, clubbing, or pedal edema. NEUROLOGICAL: Gross neurological examination did not reveal any focal deficits. SKIN: No rashes. No petechiae - Labs CBC & Chem 7: 02/22/21 21:41 02/22/21 21:41 Labs: Abnormal Lab Results - Last 24 Hours (Table) 02/23/21 02/23/21 02/23/21 Range/Units 12:23 17:18 17:38 POC Glucose (mg/dL) 215 H 56 L 58 L (75-99) mg/dL 02/23/21 02/23/21 02/24/21 Range/Units 18:00 20:00 07:11 POC Glucose (mg/dL) 157 H 164 H 147 H (75-99) mg/dL Microbiology - Last 24 Hours (Table) 02/22/21 21:41 Urine Culture - Preliminary Urine,Voided Assessment and Plan Assessment: Multiple falls without syncope/presyncope acute urinary tract infection Metabolic encephalopathy secondary to above Chronic atrial fibrillation not on anticoagulation, currently rate is controlled Diabetes Mellitus with hyperglycemia, present on admission Hypertension Chronic right leg cellulitis Hearing difficulty History of coronary artery syndrome Morbid obesity with BMI of 47.7 Plan: This is a pleasant 85 years old male who presents with generalized weakness and multiple falls, UTI Continue with ceftriaxone and urine culture Lower dose of NovoLog and Levemir and keep insulin sliding scale. Add losartan Labs and medication were reviewed.. Continue same treatment. Continue with symptomatic treatment. Resume home medication. Monitor lytes and vitals. DVT and GI prophylaxis. Further recommendations depends on the clinical course of the patient DVT prophylaxis: Subcutaneous heparin GI Prophylaxis: Pepcid PT/OT: Recommended subacute rehab
[2021-02-24 12:21] LABS: Glucose,Whole Blood 166 mg/dL (75-99)
[2021-02-24] MEDS: LOSARTAN 50 MG TAB PO SCH (12:59)
[2021-02-24 13:09] LABS: Basophils % (A) 0 %; Eosinophils # (A) 0.1 k/uL (0-0.7); Eosinophils % (A) 2 %; HCT 42.8 % (39.0-53.0); HGB 13.6 gm/dL (13.0-17.5); Lymphocytes # (A) 0.9 k/uL (1.0-4.8); Lymphocytes % (A) 18 %; MCH 31.2 pg (25.0-35.0); MCHC 31.8 g/dL (31.0-37.0); MCV 98.1 fL (80.0-100.0); Mean Platelet Volume 7.5; Monocytes # (A) 0.4 k/uL (0-1.0); Monocytes % (A) 8 %; Neutrophils # (A) 3.7 k/uL (1.3-7.7); Neutrophils % (A) 70 %; Platelet Count 174 k/uL (150-450); RBC 4.36 m/uL (4.30-5.90); RDW 13.5 % (11.5-15.5); WBC 5.2 k/uL (3.8-10.6)
[2021-02-24 13:25] LABS: African American GFR (CKD) 76 (>60 ml/min/1.73 sqM); Anion Gap 6 mmol/L; Blood Urea Nitrogen 22 mg/dL (9-20); Calcium 9.1 mg/dL (8.4-10.2); Carbon Dioxide 28 mmol/L (22-30); Chloride 102 mmol/L (98-107); Glucose 165 mg/dL (74-99); Non-African American GFR(CKD) 65 (>60 ml/min/1.73 sqM); Sodium 136 mmol/L (137-145)
[2021-02-24 13:34] LABS: Potassium 4.6 mmol/L (3.5-5.1)
[2021-02-24 17:10] LABS: Glucose,Whole Blood 115 mg/dL (75-99)
[2021-02-24 20:18] LABS: Glucose,Whole Blood 232 mg/dL (75-99)
[2021-02-24] MEDS ORDERED: INSULIN DETEMIR (LEVEMIR) 100 UNIT/ML SYR SQ SCH (21:00)
[2021-02-25] MEDS: SODIUM CHLORIDE 0.9% 1,000 ML IV SCH (00:05)
[2021-02-25 02:43] LABS: Glucose,Whole Blood 193 mg/dL (75-99)
[2021-02-25 07:30] LABS: Glucose,Whole Blood 174 mg/dL (75-99)
[2021-02-25] MEDS: FINASTERIDE 5 MG TAB PO SCH (08:18)
[2021-02-25] MEDS: INSULIN ASPART (NovoLOG) 100 UNIT/ML VIAL SQ SCH ×4 (08:18→12:43)
[2021-02-25] MEDS: CHOLECALCIFEROL 25 MCG (1000 IU) TABLET PO SCH (08:18)
[2021-02-25] MEDS: ASCORBIC ACID 500 MG TAB PO SCH (08:18)
[2021-02-25] MEDS: LOSARTAN 50 MG TAB PO SCH (08:18)
[2021-02-25] MEDS: SERTRALINE 50 MG TAB PO SCH (08:18)
[2021-02-25] MEDS: ASPIRIN 81 MG PO SCH (08:18)
[2021-02-25] MEDS: TAMSULOSIN 0.4 MG CAP.ER.24H PO SCH (08:18)
[2021-02-25] MEDS: GABAPENTIN 100 MG CAP PO SCH (08:18)
[2021-02-25 12:23] LABS: Glucose,Whole Blood 166 mg/dL (75-99)
[2021-02-25 13:17] VITALS: BP 126/63; PULSE 75; RESP 18; TEMP 98.1
--- NOTE | 2021-02-25 13:20 | P.DS ---
Providers Date of admission: 02/25/21 09:58 Attending physician: Yuliya Mijares Primary care physician: Donna Sinclair Hospital Course: Diagnoses: Multiple falls without syncope/presyncope acute urinary tract infection secondary to sensitive E. coli Metabolic encephalopathy secondary to aboveRight shoulder pain secondary to fall Chronic atrial fibrillation not on anticoagulation due to multiple falls, however he is on aspirin, currently rate is controlled Diabetes Mellitus with hyperglycemia, present on admission Hypertension Chronic right leg cellulitis Hearing difficulty History of coronary artery syndrome Morbid obesity with BMI of 47.7 Hospital course: This is a pleasant 85 years old male with past medical history of Atrial Fibrillation not on anticoagulation, Coronary Artery Disease, Diabetes Mellitus, Hearing Disorder / Deafness, Hypertension, Chronic right leg cellulitis He is a patient of Dr. Fry. Patient is fully awake and oriented to time, place and person. He has been feeling generally weak for about a week and he has been falling down at least twice, without losing consciousness, his daughters helped to get him up and his weakness was getting gradually worse so he decided to come to emergency room. His been complaining of from increased frequency of urination but with no dysuria. No other complaints and found to have urinary tract infection secondary to E. coli responded to treatment made with ceftriaxone which will be switched to Ceftin 5 days upon discharge. Patient also with right shoulder pain secondary to fall. Shoulder x-ray: No fracture or dislocation. Losartan is added for better blood pressure control. We lowered his Levemir insulin 45 units twice a day down to 14 units at bedtime and NovoLog 40 units down to 20 units 3 times a day before meals. Patient clinically improved and he remains clinically stable. On the day of discharge he denies chest pain or dyspnea. And in urine or bowel habits. No fever. No abdominal pain. Problems and management plan were discussed with the patient and he verbalized understanding and acceptance Patient was found stable and can be discharged home however he needs follow-up as an outpatient. Patient was instructed to follow up with PCP Dr. Sinclair within one week and patient agrees Physical exam Gen: patient is a AAOx3, no distress. Morbidly obese CVS: S1-S2, RRR, no murmur Lungs: B/L CTA, no wheezing Abdomen: soft, no distention, no tenderness, positive bowel sounds Extremity: no leg edema or induration. He has some tenderness in the right shoulder area but he can raise his arm above his head and he can use his hands freely Time spent more than 35 minutes Patient Condition at Discharge: Stable Plan - Discharge Summary Discharge Rx Participant: No New Discharge Prescriptions: New Melatonin 5 mg PO HS PRN tablet PRN Reason: Insomnia INSULIN ASPART (NovoLOG) [NovoLOG (formulary)] 20 unit SQ TID-W/MEALS ml Cefuroxime Axetil [Ceftin] 500 mg PO BID 5 Days #10 tab Continue Tamsulosin HCl [Flomax] 0.4 mg PO DAILY Sertraline [Zoloft] 50 mg PO DAILY [place]-3 Fatty Acids/Fish Oil [Fish Oil 1,000 mg Softgel] 1 cap PO DAILY Gabapentin [Neurontin] 100 mg PO TID Finasteride [Proscar] 5 mg PO DAILY Cholecalciferol [Vitamin D3 (25 Mcg = 1000 Iu)] 50 mcg PO DAILY Ascorbic Acid [Vitamin C] 500 mg PO DAILY Aspirin EC [Ecotrin Low Dose] 81 mg PO DAILY Changed Insulin Detemir [Levemir Flextouch Pen] 10 units SQ HS #0 Discontinued Liraglutide [Victoza 3-Jarred] 1.2 mg SQ DAILY Multivitamins, Thera [Multivitamin (formulary)] 1 tab PO DAILY Insulin Aspart [NovoLOG Flexpen] 40 units SQ TID-W/MEALS Discharge Medication List Ascorbic Acid [Vitamin C] 500 mg PO DAILY 02/22/21 [History] Aspirin EC [Ecotrin Low Dose] 81 mg PO DAILY 02/22/21 [History] Cholecalciferol [Vitamin D3 (25 Mcg = 1000 Iu)] 50 mcg PO DAILY 02/22/21 [History] Finasteride [Proscar] 5 mg PO DAILY 02/22/21 [History] Gabapentin [Neurontin] 100 mg PO TID 02/22/21 [History] [place]-3 Fatty Acids/Fish Oil [Fish Oil 1,000 mg Softgel] 1 cap PO DAILY 02/22/21 [History] Sertraline [Zoloft] 50 mg PO DAILY 02/22/21 [History] Tamsulosin HCl [Flomax] 0.4 mg PO DAILY 02/22/21 [History] Cefuroxime Axetil [Ceftin] 500 mg PO BID 5 Days #10 tab 02/25/21 [Rx] INSULIN ASPART (NovoLOG) [NovoLOG (formulary)] 20 unit SQ TID-W/MEALS ml 02/25/21 [Rx] Insulin Detemir [Levemir Flextouch Pen] 10 units SQ HS #0 02/25/21 [Rx] Melatonin 5 mg PO HS PRN tablet 02/25/21 [Rx] Follow up Appointment(s)/Referral(s): Donna Sinclair DO [Primary Care Provider] - 1-2 days
== END 2021-02-25 16:27 | DRG 689 ==
LOC: EC 20:30 → 1SOBS 23:08 → 6NMEDSUR 02-23 02:53 → 5NMEDONC 02-23 03:36 → OBSVTOIN 02-25 09:58
PROVIDERS: ADMIT Hospitalist; ATTEND Hospitalist
DX: N39.0 Urinary tract infection, site not specified (principal); G93.41 Metabolic encephalopathy; Z68.42 Body mass index [BMI] 45.0-49.9, adult; I48.20 Chronic atrial fibrillation, unspecified; L03.115 Cellulitis of right lower limb; E11.65 Type 2 diabetes mellitus with hyperglycemia; E66.01 Morbid (severe) obesity due to excess calories; H91.90 Unspecified hearing loss, unspecified ear; I10 Essential (primary) hypertension; I25.10 Atherosclerotic heart disease of native coronary artery without angina pectoris; I25.2 Old myocardial infarction; R29.6 Repeated falls; W19.XXXA Unspecified fall, initial encounter; Z20.822 Contact with and (suspected) exposure to COVID-19; M25.511 Pain in right shoulder; Z79.01 Long term (current) use of anticoagulants; Z79.4 Long term (current) use of insulin; Z79.82 Long term (current) use of aspirin; Z79.899 Other long term (current) drug therapy; Z87.891 Personal history of nicotine dependence; B96.20 Unspecified Escherichia coli [E. coli] as the cause of diseases classified elsewhere
CPT/HCPCS: 36415; 70450; 71046; 80048; 80053; 81001; 83605; 83735; 84484; 85025; 85610; 85730; 87077; 87086; 87186; 87635; 93005; 99285

== ENCOUNTER 2021-10-07 15:43 | Inpatient (IN) | payer MEDICARE ==
--- NOTE | 2021-10-07 16:02 | ED ---
General Adult HPI - General Stated complaint: weakness Time Seen by Provider: 10/07/21 15:47 Source: patient, EMS, RN notes reviewed Mode of arrival: EMS Limitations: no limitations - History of Present Illness Initial comments: Patient is a pleasant 86-year-old male presenting to the emergency Department with general weakness. Onset of symptoms was a week or 2 ago. History comes from EMS. Patient is a poor historian. Patient admits to having a fall and feeling a little bit weak. Patient does not provide much more significant history. No history of similar symptoms previously. Patient feels symptom-free at this time lying in bed. - Related Data Home Medications Medication Instructions Recorded Confirmed Ascorbic Acid [Vitamin C] 500 mg PO DAILY 02/22/21 02/22/21 Aspirin EC [Ecotrin Low Dose] 81 mg PO DAILY 02/22/21 02/22/21 Cholecalciferol [Vitamin D3 (25 50 mcg PO DAILY 02/22/21 02/22/21 Mcg = 1000 Iu)] Finasteride [Proscar] 5 mg PO DAILY 02/22/21 02/22/21 [place]-3 Fatty Acids/Fish Oil [Fish 1 cap PO DAILY 02/22/21 02/22/21 Oil 1,000 mg Softgel] Sertraline [Zoloft] 50 mg PO DAILY 02/22/21 02/22/21 Tamsulosin HCl [Flomax] 0.4 mg PO DAILY 02/22/21 02/22/21 Previous Rx's Medication Instructions Recorded Gabapentin [Neurontin] 100 mg PO TID #6 cap 02/25/21 INSULIN ASPART (NovoLOG) [NovoLOG 20 unit SQ TID-W/MEALS ml 02/25/21 (formulary)] Insulin Detemir [Levemir Flextouch 10 units SQ HS #0 02/25/21 Pen] Losartan [Cozaar] 50 mg PO DAILY tab 02/25/21 Melatonin 5 mg PO HS PRN tablet 02/25/21 cefUROXime axetiL [Ceftin] 500 mg PO BID 5 Days #10 tab 02/25/21 Allergies Allergy/AdvReac Type Severity Reaction Status Date / Time Penicillins Allergy Unknown Verified 10/07/21 16:03 Sulfa (Sulfonamide Allergy Unknown Verified 10/07/21 16:03 Antibiotics) Review of Systems ROS Statement: Those systems with pertinent positive or pertinent negative responses have been documented in the HPI. ROS Other: All systems not noted in ROS Statement are negative. Constitutional: Denies: fever Eyes: Denies: eye pain ENT: Denies: ear pain Respiratory: Denies: cough Cardiovascular: Denies: chest pain Endocrine: Denies: fatigue Gastrointestinal: Denies: abdominal pain Genitourinary: Denies: urgency Musculoskeletal: Denies: back pain Skin: Denies: rash Neurological: Reports: as per HPI, weakness. Denies: headache, numbness, paresthesias, confusion Past Medical History Past Medical History: Atrial Fibrillation, Coronary Artery Disease (CAD), Diabetes Mellitus, Hearing Disorder / Deafness, Hypertension, Myocardial Infarction ([place]) Additional Past Medical History / Comment(s): Chronic right leg cellulitis Last Myocardial Infarction Date:: pt not sure History of Any Multi-Drug Resistant Organisms: None Reported Past Surgical History: No Surgical Hx Reported Additional Past Surgical History / Comment(s): right knee replaced Past Anesthesia/Blood Transfusion Reactions: No Reported Reaction Past Psychological History: No Psychological Hx Reported Smoking Status: Former smoker Past Alcohol Use History: None Reported Past Drug Use History: None Reported - Past Family History Mother Additional Family Medical History / Comment(s): car accident Father Family Medical History: No Reported History General Exam Limitations: no limitations General appearance: alert, in no apparent distress Head exam: Present: normocephalic Eye exam: Present: normal appearance, PERRL, EOMI ENT exam: Present: normal oropharynx Neck exam: Present: normal inspection Respiratory exam: Present: normal lung sounds bilaterally Cardiovascular Exam: Present: regular rate, normal rhythm GI/Abdominal exam: Present: soft. Absent: tenderness Extremities exam: Present: normal inspection. Absent: pedal edema, calf tenderness Neurological exam: Present: alert, CN II-XII intact. Absent: motor sensory deficit Expanded Neurological exam: Present: protecting the airway Patient oriented to: Present: person, place. Absent: time Cranial nerves: EOM's Intact: Normal Motor strength exam: RUE: 5, LUE: 5, RLE: 5, LLE: 5 Eye Response: (4) open spontaneously Motor Response: (6) obeys commands Verbal Response: (4) confused conversation Psychiatric exam: Present: normal affect, normal mood Skin exam: Present: normal color Course Vital Signs 10/07/21 16:00 Temperature 97.8 F Pulse Rate 72 Respiratory 16 Rate Blood Pressure 164/87 O2 Sat by Pulse 95 Oximetry EKG Findings - EKG Comments: EKG Findings:: A. fib with rate of 79. QRS 101. QT 389. QTC 424. Left axis. Poor R-wave progression. No acute ST change. Medical Decision Making - Medical Decision Making Patient reevaluated. Patient and family updated. Dr. Mijares has been paged for admission covering Dr. Sinclair. - Lab Data Result diagrams: 10/07/21 16:04 10/07/21 16:04 Lab Results 10/07/21 10/07/21 10/07/21 Range/Units 16:04 16:04 16:04 WBC 6.7 (3.8-10.6) k/uL RBC 4.07 L (4.30-5.90) m/uL Hgb 12.5 L (13.0-17.5) gm/dL Hct 39.5 (39.0-53.0) % MCV 96.9 (80.0-100.0) fL MCH 30.8 (25.0-35.0) pg MCHC 31.7 (31.0-37.0) g/dL RDW 13.4 (11.5-15.5) % Plt Count 133 L (150-450) k/uL MPV 7.8 Neutrophils % 73 % Lymphocytes % 16 % Monocytes % 7 % Eosinophils % 1 % Basophils % 0 % Neutrophils # 4.9 (1.3-7.7) k/uL Lymphocytes # 1.1 (1.0-4.8) k/uL Monocytes # 0.5 (0-1.0) k/uL Eosinophils # 0.1 (0-0.7) k/uL Basophils # 0.0 (0-0.2) k/uL PT 10.8 (9.0-12.0) sec INR 1.0 (<1.2) APTT 23.1 (22.0-30.0) sec Sodium 137 (137-145) mmol/L Potassium 4.1 (3.5-5.1) mmol/L Chloride 103 (98-107) mmol/L Carbon Dioxide 28 (22-30) mmol/L Anion Gap 6 mmol/L BUN 20 (9-20) mg/dL Creatinine 1.12 (0.66-1.25) mg/dL Est GFR (CKD-EPI)AfAm 68 (>60 ml/min/1.73 sqM) Est GFR (CKD-EPI)NonAf 59 (>60 ml/min/1.73 sqM) Glucose 87 (74-99) mg/dL Plasma Lactic Acid Esteban (0.7-2.0) mmol/L Calcium 8.8 (8.4-10.2) mg/dL Magnesium 1.6 (1.6-2.3) mg/dL Total Bilirubin 0.5 (0.2-1.3) mg/dL AST 48 (17-59) U/L ALT 20 (4-49) U/L Alkaline Phosphatase 68 (38-126) U/L Troponin I (0.000-0.034) ng/mL Total Protein 6.3 (6.3-8.2) g/dL Albumin 3.4 L (3.5-5.0) g/dL Free T4 0.94 (0.78-2.19) ng/dL Free T3 pg/mL 4.0 (2.8-5.3) pg/ml Urine Color Urine Appearance (Clear) Urine pH (5.0-8.0) Ur Specific [place] (1.001-1.035) Urine Protein (Negative) Urine Glucose (UA) (Negative) Urine Ketones (Negative) Urine Blood (Negative) Urine Nitrite (Negative) Urine Bilirubin (Negative) Urine Urobilinogen (<2.0) mg/dL Ur Leukocyte Esterase (Negative) Urine RBC (0-5) /hpf Urine WBC (0-5) /hpf Ur Squamous Epith Cells (0-4) /hpf Urine Mucus (None) /hpf Coronavirus (PCR) (Not Detectd) 10/07/21 10/07/21 10/07/21 Range/Units 16:04 16:04 16:36 WBC (3.8-10.6) k/uL RBC (4.30-5.90) m/uL Hgb (13.0-17.5) gm/dL Hct (39.0-53.0) % MCV (80.0-100.0) fL MCH (25.0-35.0) pg MCHC (31.0-37.0) g/dL RDW (11.5-15.5) % Plt Count (150-450) k/uL MPV Neutrophils % % Lymphocytes % % Monocytes % % Eosinophils % % Basophils % % Neutrophils # (1.3-7.7) k/uL Lymphocytes # (1.0-4.8) k/uL Monocytes # (0-1.0) k/uL Eosinophils # (0-0.7) k/uL Basophils # (0-0.2) k/uL PT (9.0-12.0) sec INR (<1.2) APTT (22.0-30.0) sec Sodium (137-145) mmol/L Potassium (3.5-5.1) mmol/L Chloride (98-107) mmol/L Carbon Dioxide (22-30) mmol/L Anion Gap mmol/L BUN (9-20) mg/dL Creatinine (0.66-1.25) mg/dL Est GFR (CKD-EPI)AfAm (>60 ml/min/1.73 sqM) Est GFR (CKD-EPI)NonAf (>60 ml/min/1.73 sqM) Glucose (74-99) mg/dL Plasma Lactic Acid Esteban 1.8 (0.7-2.0) mmol/L Calcium (8.4-10.2) mg/dL Magnesium (1.6-2.3) mg/dL Total Bilirubin (0.2-1.3) mg/dL AST (17-59) U/L ALT (4-49) U/L Alkaline Phosphatase (38-126) U/L Troponin I 0.013 (0.000-0.034) ng/mL Total Protein (6.3-8.2) g/dL Albumin (3.5-5.0) g/dL Free T4 (0.78-2.19) ng/dL Free T3 pg/mL (2.8-5.3) pg/ml Urine Color Yellow Urine Appearance Clear (Clear) Urine pH 6.5 (5.0-8.0) Ur Specific [place] 1.012 (1.001-1.035) Urine Protein 1+ H (Negative) Urine Glucose (UA) Negative (Negative) Urine Ketones Negative (Negative) Urine Blood Trace H (Negative) Urine Nitrite Negative (Negative) Urine Bilirubin Negative (Negative) Urine Urobilinogen 2.0 (<2.0) mg/dL Ur Leukocyte Esterase Small H (Negative) Urine RBC 1 (0-5) /hpf Urine WBC 5 (0-5) /hpf Ur Squamous Epith Cells 1 (0-4) /hpf Urine Mucus Rare H (None) /hpf Coronavirus (PCR) (Not Detectd) 10/07/21 Range/Units 16:36 WBC (3.8-10.6) k/uL RBC (4.30-5.90) m/uL Hgb (13.0-17.5) gm/dL Hct (39.0-53.0) % MCV (80.0-100.0) fL MCH (25.0-35.0) pg MCHC (31.0-37.0) g/dL RDW (11.5-15.5) % Plt Count (150-450) k/uL MPV Neutrophils % % Lymphocytes % % Monocytes % % Eosinophils % % Basophils % % Neutrophils # (1.3-7.7) k/uL Lymphocytes # (1.0-4.8) k/uL Monocytes # (0-1.0) k/uL Eosinophils # (0-0.7) k/uL Basophils # (0-0.2) k/uL PT (9.0-12.0) sec INR (<1.2) APTT (22.0-30.0) sec Sodium (137-145) mmol/L Potassium (3.5-5.1) mmol/L Chloride (98-107) mmol/L Carbon Dioxide (22-30) mmol/L Anion Gap mmol/L BUN (9-20) mg/dL Creatinine (0.66-1.25) mg/dL Est GFR (CKD-EPI)AfAm (>60 ml/min/1.73 sqM) Est GFR (CKD-EPI)NonAf (>60 ml/min/1.73 sqM) Glucose (74-99) mg/dL Plasma Lactic Acid Esteban (0.7-2.0) mmol/L Calcium (8.4-10.2) mg/dL Magnesium (1.6-2.3) mg/dL Total Bilirubin (0.2-1.3) mg/dL AST (17-59) U/L ALT (4-49) U/L Alkaline Phosphatase (38-126) U/L Troponin I (0.000-0.034) ng/mL Total Protein (6.3-8.2) g/dL Albumin (3.5-5.0) g/dL Free T4 (0.78-2.19) ng/dL Free T3 pg/mL (2.8-5.3) pg/ml Urine Color Urine Appearance (Clear) Urine pH (5.0-8.0) Ur Specific [place] (1.001-1.035) Urine Protein (Negative) Urine Glucose (UA) (Negative) Urine Ketones (Negative) Urine Blood (Negative) Urine Nitrite (Negative) Urine Bilirubin (Negative) Urine Urobilinogen (<2.0) mg/dL Ur Leukocyte Esterase (Negative) Urine RBC (0-5) /hpf Urine WBC (0-5) /hpf Ur Squamous Epith Cells (0-4) /hpf Urine Mucus (None) /hpf Coronavirus (PCR) Not Detected (Not Detectd) - Radiology Data Radiology results: report reviewed (Computed tomography scan of the brain shows possible small area of acute or subacute ischemia. Mild to moderate hydrocephalus.), image reviewed (Chest x-ray shows no acute process. Critical megaly.) Disposition Clinical Impression: Weak Disposition: ADMITTED IP TO THIS HOSP Is patient prescribed a controlled substance at d/c from ED?: No Referrals: Donna Sinclair DO [Primary Care Provider] - 1-2 days Time of Disposition: 17:28
[2021-10-07 16:33] LABS: Basophils % (A) 0 %; Eosinophils # (A) 0.1 k/uL (0-0.7); Eosinophils % (A) 1 %; HCT 39.5 % (39.0-53.0); HGB 12.5 gm/dL (13.0-17.5); Lymphocytes # (A) 1.1 k/uL (1.0-4.8); Lymphocytes % (A) 16 %; MCH 30.8 pg (25.0-35.0); MCHC 31.7 g/dL (31.0-37.0); MCV 96.9 fL (80.0-100.0); Mean Platelet Volume 7.8; Monocytes # (A) 0.5 k/uL (0-1.0); Monocytes % (A) 7 %; Neutrophils # (A) 4.9 k/uL (1.3-7.7); Neutrophils % (A) 73 %; Platelet Count 133 k/uL (150-450); RBC 4.07 m/uL (4.30-5.90); RDW 13.4 % (11.5-15.5); WBC 6.7 k/uL (3.8-10.6)
[2021-10-07 16:46] LABS: Partial Thromboplastin Time 23.1 sec (22.0-30.0); Prothrombin Time 10.8 sec (9.0-12.0)
--- NOTE | 2021-10-07 16:49 | CT ---
EXAMINATION TYPE: CT brain wo con DATE OF EXAM: 10/07/2021 COMPARISON: 02/22/2021 HISTORY: 86-year-old male with weakness weakness TECHNIQUE: Examination was done in axial plane without intravenous contrast. Coronal and sagittal r econstructions performed. CT DLP: 1125.4 mGycm Automated exposure control for dose reduction was used. FINDINGS: Subtle cortical hypodensity lateral right frontal lobe, axial image 31 and coronal image 37. There is no evidence of acute intracranial hemorrhage, mass, mass-effect, or extra-axial fluid colle ction. There is no effacement of cerebral sulci or basal subarachnoid cisterns. Mild to moderate hyd rocephalus, Jimbo's ratio calculated at 0.41, unchanged from prior. Mild periventricular white matter hypodensities. There is no midline shift. Kinney-white matter distinction is preserved. Paranasal sinuses and mastoid air cells are well pneumatized. Mild mucosal thickening ethmoid air everardo ls. Orbits and globes are intact. IMPRESSION: 1. Subtle cortical hypodensity lateral right frontal lobe, axial image 31 and coronal image 37. Not c learly seen on prior exam. Unable to exclude a small area of acute or subacute ischemia. If there is no focal left-sided neurologic deficit, this may represent partial volume averaging. Again, clinicall y correlate. 2. Mild to moderate hydrocephalus with Jimbo's ratio of 0.41 is unchanged. Consider underlying NPH. Discussed with Dr. Roblero in the ER at 4:45 PM.
--- NOTE | 2021-10-07 16:49 | XR ---
EXAMINATION TYPE: XR chest 2V DATE OF EXAM: 10/07/2021 4:26 PM COMPARISON: Chest radiographs from 02/22/2021 TECHNIQUE: XR chest 2V Frontal and lateral views of the chest. CLINICAL INDICATION:Male, 86 years old with history of Weakness; FINDINGS: Lungs/Pleura: There is no evidence of pleural effusion, focal consolidation, or pneumothorax. Pulmonary vascularity: Unremarkable. Heart/mediastinum: Cardiomediastinal silhouette is enlarged and stable. Musculoskeletal: No acute osseous pathology. IMPRESSION: 1. No acute cardiopulmonary disease/process. 2. Unchanged cardiomegaly.
[2021-10-07 16:57] LABS: Appearance,Urine Clear (Clear); Bilirubin,Urine Negative (Negative); Blood,Urine Trace (Negative); Color,Urine Yellow; Glucose,Urine (UA) Negative (Negative); Ketones,Urine Negative (Negative); Leukocyte Esterase,Urine Small (Negative); Mucus,Urine Rare /hpf; Nitrite,Urine Negative (Negative); PH, Urine 6.5 (5.0-8.0); Protein,Urine 1+ (Negative); RBC,Urine 1 /hpf (0-5); Specific Gravity,Urine 1.012 (1.001-1.035); Squamous Epithelial Cell,Urine 1 /hpf (0-4); WBC,Urine 5 /hpf (0-5)
[2021-10-07 17:12] LABS: Albumin 3.4 g/dL (3.5-5.0); Calcium 8.8 mg/dL (8.4-10.2); Magnesium 1.6 mg/dL (1.6-2.3); Potassium 4.1 mmol/L (3.5-5.1); Total Bilirubin 0.5 mg/dL (0.2-1.3); Total Protein 6.3 g/dL (6.3-8.2)
[2021-10-07 17:28] LABS: T4, Free (Free Thyroxine) 0.94 ng/dL (0.78-2.19)
[2021-10-07] MEDS ORDERED: ASPIRIN 325 MG TAB PO STA (17:39)
[2021-10-07] MEDS: SODIUM CHLORIDE 0.9% 1,000 ML IV SCH (19:47)
[2021-10-07 20:38] LABS: Glucose,Whole Blood 321 mg/dL (70-110)
[2021-10-07] MEDS ORDERED: MELATONIN 5 MG TABLET PO PRN (21:21)
[2021-10-07] MEDS ORDERED: INSULIN DETEMIR (LEVEMIR) 100 UNIT/ML SYR SQ SCH (21:30)
[2021-10-07] MEDS: GABAPENTIN 100 MG CAP PO SCH (21:45)
[2021-10-07] MEDS: INSULIN ASPART (NovoLOG) 100 UNIT/ML VIAL SQ SCH (21:46)
[2021-10-08] MEDS: SODIUM CHLORIDE 0.9% 1,000 ML IV SCH ×2 (05:37→17:23)
[2021-10-08 06:10] LABS: Glucose,Whole Blood 113 mg/dL (70-110)
[2021-10-08] MEDS ORDERED: INSULIN ASPART (NovoLOG) 100 UNIT/ML VIAL SQ SCH (07:30)
[2021-10-08 07:31] LABS: Glucose,Whole Blood 127 mg/dL (70-110)
[2021-10-08 08:21] LABS: Basophils % (A) 0 %; Eosinophils # (A) 0.1 k/uL (0-0.7); Eosinophils % (A) 2 %; HCT 37.7 % (39.0-53.0); HGB 12.4 gm/dL (13.0-17.5); Lymphocytes # (A) 0.7 k/uL (1.0-4.8); Lymphocytes % (A) 11 %; MCH 32.2 pg (25.0-35.0); MCHC 32.9 g/dL (31.0-37.0); MCV 97.9 fL (80.0-100.0); Monocytes # (A) 0.5 k/uL (0-1.0); Monocytes % (A) 7 %; Neutrophils # (A) 4.9 k/uL (1.3-7.7); Neutrophils % (A) 78 %; Platelet Count 138 k/uL (150-450); RBC 3.85 m/uL (4.30-5.90); RDW 13.5 % (11.5-15.5); WBC 6.2 k/uL (3.8-10.6)
--- NOTE | 2021-10-08 08:24 | P.HPIM ---
History of Present Illness his is a pleasant 80 years old male with past medical history of Atrial Fibrillation, Coronary Artery Disease , Diabetes Mellitus, Hearing Disorder / Deafness, Hypertension, , Chronic right leg cellulitis Patient is fully awake and oriented, he states he lives in his home by himself, he states someone called the ambulance for him because he was not acting right And he admits he fell on the floor but he cannot remember what happened, last thing he remembers he was just acting normal in his house without specification. Patient complains from left shoulder pain and she states that yesterday his left leg and arm or weaker than usual, he has chronic weakness in his left side, he thinks is improved but not back to normal. He denies headache or dizziness, no numbness. He has chronic tingling in his legs and feet and he is on gabapentin for it. Denies chest pain or dyspnea but he has frequent dry cough. No abdominal pain or vomiting or diarrhea. No urinary complaints He denies smoking, alcohol or illicit drugs. He states that he has history of A. fib but he thinks he was on A. fib although he wasn't sure and states that his daughter antonieta who takes care of his medication Patient denies any recent changes of medication. She is taken Levemir 45 units twice a day and NovoLog 20 units with meals. He has good appetite Vitals looks stable. Labs are remarkable. TSH is normal. Urine analysis is still suspicious of infection CT of the brain: possible small area of acute or subacute ischemia. Mild to moderate hydrocephalus Chest x-ray: no acute process EKG A. fib with rate of 74. QRS 89. QT 370. QTc 398. Left axis. Poor R-wave progression. LVH criteria. No acute ST change. In the emergency room patient continued on aspirin 81 mg Normal saline at 100 mL per hour i called daughter Antonieta and left a message to call back Past Medical History Past Medical History: Atrial Fibrillation, Coronary Artery Disease (CAD), Diabetes Mellitus, Hearing Disorder / Deafness, Hypertension, Myocardial Infarction ([place]) Additional Past Medical History / Comment(s): Chronic right leg cellulitis Last Myocardial Infarction Date:: pt not sure History of Any Multi-Drug Resistant Organisms: None Reported Past Surgical History: No Surgical Hx Reported Additional Past Surgical History / Comment(s): right knee replaced Past Anesthesia/Blood Transfusion Reactions: No Reported Reaction Past Psychological History: No Psychological Hx Reported Smoking Status: Former smoker Past Alcohol Use History: None Reported Past Drug Use History: None Reported - Past Family History Mother Additional Family Medical History / Comment(s): car accident Father Family Medical History: No Reported History Medications and Allergies Home Medications Medication Instructions Recorded Confirmed Type Aspirin EC [Ecotrin Low Dose] 81 mg PO DAILY 02/22/21 10/07/21 History Finasteride [Proscar] 5 mg PO DAILY 02/22/21 10/07/21 History [place]-3 Fatty Acids/Fish Oil [Fish 1 cap PO DAILY 02/22/21 10/07/21 History Oil 1,000 mg Softgel] Sertraline [Zoloft] 50 mg PO DAILY 02/22/21 10/07/21 History Tamsulosin HCl [Flomax] 0.4 mg PO DAILY 02/22/21 10/07/21 History Gabapentin [Neurontin] 100 mg PO TID #6 cap 02/25/21 10/07/21 Rx INSULIN ASPART (NovoLOG) [NovoLOG 20 unit SQ TID-W/MEALS ml 02/25/21 10/07/21 Rx (formulary)] Melatonin 5 mg PO HS PRN tablet 02/25/21 10/07/21 Rx Diphenox-Atrop 2.5-0.025 mg 1 tab PO QID PRN 10/07/21 10/07/21 History [Lomotil] Insulin Detemir [Levemir Flextouch 45 units SQ BID 10/07/21 10/07/21 History Pen] Liraglutide [Victoza 3-Jarred] 1.2 mg SQ DAILY 10/07/21 10/07/21 History Multivitamins, Thera [Multivitamin 1 tab PO DAILY 10/07/21 10/07/21 History (formulary)] Allergies Allergy/AdvReac Type Severity Reaction Status Date / Time Penicillins Allergy Feet Verified 10/07/21 18:33 swelled, was given at the same time as Sulfa Sulfa (Sulfonamide Allergy Feet Verified 10/07/21 18:33 Antibiotics) swelled, was given at the same time as Sulfa Physical Exam Vitals: Vital Signs Temp Pulse Pulse Resp BP BP Pulse Ox 10/08/21 03:52 98.7 F 64 18 162/67 96 10/08/21 00:00 98.2 F 74 18 153/54 96 10/07/21 20:00 98.1 F 79 18 163/89 96 10/07/21 19:50 97.2 F L 81 20 156/70 98 10/07/21 19:00 97.8 F 72 20 149/80 97 10/07/21 18:00 98.2 F 76 20 158/76 98 10/07/21 16:00 97.8 F 72 80 16 164/87 95 Intake and Output 10/07/21 10/08/21 10/08/21 22:59 06:59 14:59 Intake Total 10 Output Total 800 Balance 10 -800 Intake: IV 10 Invasive Line 1 10 Output: Urine 800 Other: Voiding Method Urinal Urinal Weight 158.757 kg -GENERAL: The patient is alert and oriented x3, not in any acute distress. Well developed, morbidly obese HEENT: Pupils are round and equally reacting to light. EOMI. No scleral icterus. No conjunctival pallor. Normocephalic, atraumatic. No pharyngeal erythema. No thyromegaly. CARDIOVASCULAR: S1 and S2 present. No murmurs, rubs, or gallops. PULMONARY: Chest is clear to auscultation, no wheezing or crackles. ABDOMEN: Soft, nontender, nondistended, normoactive bowel sounds. No palpable organomegaly. MUSCULOSKELETAL: No joint swelling or deformity. -EXTREMITIES: No cyanosis, clubbing, or pedal edema. NEUROLOGICAL: Cranial nerves are grossly intact. Mild left-sided hemiparesis/5. Sensation intact. -SKIN: Mild fungal rash in the groins rashes. no petechiae. Results CBC & Chem 7: 10/07/21 16:04 10/07/21 16:04 Labs: Abnormal Lab Results - Last 24 Hours (Table) 10/07/21 10/07/21 10/07/21 Range/Units 16:04 16:04 16:36 RBC 4.07 L (4.30-5.90) m/uL Hgb 12.5 L (13.0-17.5) gm/dL Plt Count 133 L (150-450) k/uL POC Glucose (mg/dL) (70-110) mg/dL Albumin 3.4 L (3.5-5.0) g/dL Urine Protein 1+ H (Negative) Urine Blood Trace H (Negative) Ur Leukocyte Esterase Small H (Negative) Urine Mucus Rare H (None) /hpf 10/07/21 10/08/21 10/08/21 Range/Units 20:36 06:08 07:30 RBC (4.30-5.90) m/uL Hgb (13.0-17.5) gm/dL Plt Count (150-450) k/uL POC Glucose (mg/dL) 321 H 113 H 127 H (70-110) mg/dL Albumin (3.5-5.0) g/dL Urine Protein (Negative) Urine Blood (Negative) Ur Leukocyte Esterase (Negative) Urine Mucus (None) /hpf Thrombosis Risk Factor Assmnt - Choose All That Apply Any of the Below Risk Factors Present?: Yes Each Factor Represents 1 point: Obesity (BMI >25), Swollen legs (current) Other Risk Factors: Yes Each Risk Factor Represents 3 Points: Age 75 years or older Other congenital or acquired thrombophilia - If yes, enter type in comment: No Thrombosis Risk Factor Assessment Total Risk Factor Score: 5 Thrombosis Risk Factor Assessment Level: High Risk Assessment and Plan Assessment: Possible right acute versus subacute CVA with mild left hemiparesis Hypoglycemia on admission Atrial fibrillation with normal VA, not on anticoagulation Left shoulder pain History of coronary artery disease Diabetes mellitus, with hyperglycemia on admission Hypertension History of her chronic right leg cellulitis Morbid obesity Plan: This is a pleasant 86 years old male who presents with hypoglycemia and generalized weakness. Also there is a concern of stroke on CT imaging. A. fib. Continue with aspirin. Consulting neurologist. Review medications. Monitor heart rate Check hemoglobin A1c and monitor glucose. Monitor Levemir for now and continue with insulin sliding scale, reverse resume Levemir gradually was traversed R [facility]orship Labs and medication were reviewed.. Continue same treatment. Continue with symptomatic treatment. Resume home medication. Monitor lytes and vitals. DVT and GI prophylaxis. Further recommendations as per clinical course of the patient DVT prophylaxis: Subcutaneous heparin GI Prophylaxis: Pepcid PT/OT: Pending Prognosis is guarded
[2021-10-08 08:26] LABS: African American GFR (CKD) 73 (>60 ml/min/1.73 sqM); Anion Gap 4 mmol/L; Blood Urea Nitrogen 18 mg/dL (9-20); Calcium 8.4 mg/dL (8.4-10.2); Carbon Dioxide 29 mmol/L (22-30); Chloride 104 mmol/L (98-107); Glucose 111 mg/dL (74-99); Magnesium 1.7 mg/dL (1.6-2.3); Non-African American GFR(CKD) 63 (>60 ml/min/1.73 sqM); Potassium 4.2 mmol/L (3.5-5.1); Sodium 137 mmol/L (137-145)
--- NOTE | 2021-10-08 08:53 | P.CNNES ---
History of Present Illness Consult date: 10/08/21 Requesting physician: Brian Roblero Reason for Consult: weakness. Evaluate for CVA vs NPH vs other History of Present Illness: This is an 86-year-old gentleman with history of atrial fibrillation not on anticoagulation, coronary artery disease, diabetes mellitus, hypertension, who presented emergency department on 10/07/2020 for generalized weakness. Some of the history is obtained from medical record since he is somewhat poor historian. It seems that possibly the patient has been having generalized weakness for the past 1-2 weeks and been having falls. Patient stated that he has old left-sided weakness but felt may be the left side was worse in the last 1-2 days. He stated that he's been having urinary incontinence for at least 4-6 years, using a walker for the same duration and that been having falls for years. He could not tell me how he falls if he feels lightheaded or dizzy upon standing up or has any weakness with walking. He stated that he resides by himself but has a lot of assistance by his daughter comes and checks up on him and gives him his medication. From the EMR some of the patient's home medications consists of aspirin 81, gabapentin 100mg one tablet the 3 times a day. From the EMR does not seem the patient is on any anticoagulation and unsure for how long or was it because of his falls. Some other workup in our facility during this hospital visit consisted of: Initial vital signs is blood pressure 164/87, heart rate is 72, heart rate of 16, temperature of 97.8 Fahrenheit oral pulse ox of 95% room air. Initial serum glucose 87. Patient had POC glucose is high as 321 yesterday and night otherwise it's been in the 110 to 120s. Otherwise rest of the chemistry panel is unremarkable. TSH is 4.08 and free T4 is 0.94 Bey virus is was not detected. CT of the head is reported as supple cortical hypodensity lateral right frontal lobe, axial image 31 and coronal image 37 not clearly seen on prior exam. Unable to exclude a small area of acute or subacute ischemia. If there is no focal left-sided neurological deficit, this may represent partial volume aging. Again clinically correlate. Mild to moderate hydrocephalus with eventration 0.4 one is unchanged. Consider underlying NPH. I personally reviewed the CT of the head and I agree with the finding. Patient prior CT in our facility was on on 2020 for comparison and I feel the patient's probable NPH seems unchanged Review of Systems Review of system: The 12 point system was reviewed and apparent positive and negative per HPI. Past Medical History Past Medical History: Atrial Fibrillation, Coronary Artery Disease (CAD), Diabetes Mellitus, Hearing Disorder / Deafness, Hypertension, Myocardial Infarction ([place]) Additional Past Medical History / Comment(s): Chronic right leg cellulitis Last Myocardial Infarction Date:: pt not sure History of Any Multi-Drug Resistant Organisms: None Reported Past Surgical History: No Surgical Hx Reported Additional Past Surgical History / Comment(s): right knee replaced Past Anesthesia/Blood Transfusion Reactions: No Reported Reaction Past Psychological History: No Psychological Hx Reported Smoking Status: Former smoker Past Alcohol Use History: None Reported Past Drug Use History: None Reported - Past Family History Mother Additional Family Medical History / Comment(s): car accident Father Family Medical History: No Reported History Medications and Allergies Home Medications Medication Instructions Recorded Confirmed Type Aspirin EC [Ecotrin Low Dose] 81 mg PO DAILY 02/22/21 10/07/21 History Finasteride [Proscar] 5 mg PO DAILY 02/22/21 10/07/21 History [place]-3 Fatty Acids/Fish Oil [Fish 1 cap PO DAILY 02/22/21 10/07/21 History Oil 1,000 mg Softgel] Sertraline [Zoloft] 50 mg PO DAILY 02/22/21 10/07/21 History Tamsulosin HCl [Flomax] 0.4 mg PO DAILY 02/22/21 10/07/21 History Gabapentin [Neurontin] 100 mg PO TID #6 cap 02/25/21 10/07/21 Rx INSULIN ASPART (NovoLOG) [NovoLOG 20 unit SQ TID-W/MEALS ml 02/25/21 10/07/21 Rx (formulary)] Melatonin 5 mg PO HS PRN tablet 02/25/21 10/07/21 Rx Diphenox-Atrop 2.5-0.025 mg 1 tab PO QID PRN 10/07/21 10/07/21 History [Lomotil] Insulin Detemir [Levemir Flextouch 45 units SQ BID 10/07/21 10/07/21 History Pen] Liraglutide [Victoza 3-Jarred] 1.2 mg SQ DAILY 10/07/21 10/07/21 History Multivitamins, Thera [Multivitamin 1 tab PO DAILY 10/07/21 10/07/21 History (formulary)] Allergies Allergy/AdvReac Type Severity Reaction Status Date / Time Penicillins Allergy Feet Verified 10/07/21 18:33 swelled, was given at the same time as Sulfa Sulfa (Sulfonamide Allergy Feet Verified 10/07/21 18:33 Antibiotics) swelled, was given at the same time as Sulfa Physical Examination - Vital Signs Vital Signs: Vital Signs Temp Pulse Pulse Resp BP BP Pulse Ox 10/08/21 03:52 98.7 F 64 18 162/67 96 10/08/21 00:00 98.2 F 74 18 153/54 96 10/07/21 20:00 98.1 F 79 18 163/89 96 10/07/21 19:50 97.2 F L 81 20 156/70 98 10/07/21 19:00 97.8 F 72 20 149/80 97 10/07/21 18:00 98.2 F 76 20 158/76 98 10/07/21 16:00 97.8 F 72 80 16 164/87 95 Intake and Output 10/07/21 10/08/21 10/08/21 22:59 06:59 14:59 Intake Total 10 Output Total 800 Balance 10 -800 Intake: IV 10 Invasive Line 1 10 Output: Urine 800 Other: Voiding Method Urinal Urinal Weight 158.757 kg GENERAL: The patient is lying in bed and is not in acute distress. Is morbidly obese. CHEST: The heart rate is regular rate rhythm. No murmurs to auscultation. LUNG: Clear to auscultation bilaterally no wheezing noted throughout. Not labored breathing. ABDOMEN/GI: Bowel sounds present in all 4 quadrants. No tenderness to palpation throughout. INTEGUMENTARY: Has edema of lowers. NEUROLOGICAL: Higher mental function: The patient is awake, alert, oriented to self and place. Not time. He is able to identify simple objects (such as pen and watch). Patient is following commands. No aphasia and no neglect. Cranial nerves: The pupils are round, equal and reactive to light and accommodation. Visual simmons are full to confrontation throughout. Extraocular movement is intact no nystagmus is noted. Facial sensation is normal to touch throughout. The facial strength is normal throughout. Hearing is mildly decreased bilaterally to hand rub. Tongue is midline and moved [id number] without any difficulty. No dysarthria is noted. Shoulder shrug is normal bilaterally. Motor: The strength is 5 over 5 throughout uppers while lowers is left knee extension is 4+ to 5- (he stated old). Normal tone and bulk. Cerebellum: Normal finger to nose bilaterally. Sensation: Sensation is normal to touch throughout. Reflexes (right/left): 1+ throughout. Plantars are mute bilaterally. Results - Laboratory Findings CBC and BMP: 10/08/21 07:31 10/08/21 07:31 Abnormal Lab Findings: Abnormal Labs 10/07/21 10/07/21 10/07/21 16:04 16:04 16:36 RBC 4.07 L Hgb 12.5 L Plt Count 133 L POC Glucose (mg/dL) Albumin 3.4 L Urine Protein 1+ H Urine Blood Trace H Ur Leukocyte Esterase Small H Urine Mucus Rare H 10/07/21 10/08/21 10/08/21 20:36 06:08 07:30 RBC Hgb Plt Count POC Glucose (mg/dL) 321 H 113 H 127 H Albumin Urine Protein Urine Blood Ur Leukocyte Esterase Urine Mucus Assessment and Plan Assessment: Hypodensity over the lateral right frontal on imaging and patient janet his left side is weaker than baseline for past 1-2 days (on examination uppers are normal while left lower is mildly weak and he stated old): Rule out acute to subacute ischemic stroke Generalized weakness for the last 1-2 weeks Probable normal pressure hydrocephalus and CT of the head is unchanged from 2020 (he stated having symptoms for past 4-6 years of urinary incontinence, using a walker, falls) Falls seems 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 If the patient does have any acute to subacute ischemic stroke then we'll put the patient on dual antiplatelet. Ordered orthostatic vitals. Carotid duplex and 2-D echo, lipid panel, folate, vitamin B12 are ordered by ED and primary team and pending Continue neuro checks PT, OT and YOUTH NUTRITIONAL MONITOR are consulted I highly recommend the patient follow up with a neurologist and neurosurgeon as an outpatient and the consider a large volume tap and if improvement after it then consider LIGHT ADJUSTER shunt as outpatient. I don't think he will benefit since according to him his symptoms has been going on for past 4-6 years but will defer final decision as outpatient. Cardiology team was consulted by the primary team for EKG changes We'll defer the rest of the medical management to the primary team I don't think it is safe for the patient to reside byself since having falling episodes. The plan is discussed with the primary attending. I will attempt to contact family for further details. Thank you for the consultation. Kevin Newton M.D. Neuro-hospitalist Time with Patient: Greater than 30
[2021-10-08] MEDS: MULTIVITAMINS, THERA 1 EACH TAB PO SCH (08:59)
[2021-10-08] MEDS: TAMSULOSIN 0.4 MG CAP.ER.24H PO SCH (08:59)
[2021-10-08] MEDS: GABAPENTIN 100 MG CAP PO SCH ×3 (08:59→21:33)
[2021-10-08] MEDS: FINASTERIDE 5 MG TAB PO SCH (08:59)
[2021-10-08] MEDS: SERTRALINE 50 MG TAB PO SCH (08:59)
[2021-10-08] MEDS ORDERED: ASPIRIN 325 MG TAB PO SCH (09:00)
[2021-10-08] MEDS: INSULIN ASPART (NovoLOG) 100 UNIT/ML VIAL SQ SCH ×7 (09:00→21:32)
[2021-10-08] MEDS ORDERED: ENOXAPARIN 40 MG/0.4 ML SYRINGE SQ SCH (09:00)
[2021-10-08] MEDS ORDERED: ASPIRIN 81 MG PO SCH (09:00)
[2021-10-08] MEDS ORDERED: FAMOTIDINE 20 MG/2 ML VIAL IV SCH (09:00)
--- NOTE | 2021-10-08 09:28 | P.CRDCN ---
History of Present Illness Consult date: 10/08/21 History of present illness: History of Present Illness: The patient is an 86-year-old male presented with generalized weakness, more on the left side. He is in atrial fibrillation with no anticoagulation on presentation. His history is somewhat limited but he denies any chest discomfort or palpitations. He has a history of chronic dyspnea on exertion and occasional peripheral edema, unchanged. He denies any PND or orthopnea. He had no episode of tachyarrhythmia on the monitor. He has a history of diabetes on the records there is a history of CAD although details are not available. Patient had prior left-sided weakness but according to him worse now. No prior echocardiogram is available to me. He underwent a computed tomography scan of the brain that showed cortical hypodensity with mild to moderate hydrocephalus consistent with normal pressure hydrocephalus. His cardiac risk factors are positive for diabetes, his lipid profile is not available. Medications: Insulin, Neurontin, Proscar, aspirin Review of Systems: Review of system is somewhat limited Respiratory: No history of asthma, bronchitis or recent cough. GI: No nausea or vomiting . No history of peptic ulcer disease. No recent GI bleed. : No hematuria or dysuria. Nervous System: No stroke or seizure. Physical Examination: 86-year-old male alert no apparent distress,Blood pressure 107/60, Heart rate 70 Head: Normocephalic. Eyes: Sclerae nonicteric. Neck: Good carotid upstroke, no bruit, no jugular venous distention. Lungs: Clear to auscultation. Heart: Irregular rate and rhythm, S1-S2, no S3, no rub. Systolic ejection murmur. Abdomen: Soft nontender, positive bowel sounds no organomegaly, obese. Extremities: Trace to 1+ edema, intact distal pulses. Labs: Hemoglobin 12.4, BUN 18, creatinine 1.6. Potassium 4.2, TSH 4.0 EKG: EKG atrial fibrillation with nonspecific ST-T wave changes Impression: 1. Left-sided weakness rule out new CVA 2. Chronic persistent atrial fibrillation, not anticoagulated, his CHADs2-VASC2 score is 5 3. Possible NPH 4. Diabetes Plan: 1. Obtain an echocardiogram with Doppler 2. Add anticoagulation, discussed with Dr. Hawkins 3. Monitor ventricular response 4. Depending on his progress further recommendations will be made 5. Thank you for this consult we will follow with you. Past Medical History Past Medical History: Atrial Fibrillation, Coronary Artery Disease (CAD), Diabetes Mellitus, Hearing Disorder / Deafness, Hypertension, Myocardial Infarction ([place]) Additional Past Medical History / Comment(s): Chronic right leg cellulitis Last Myocardial Infarction Date:: pt not sure History of Any Multi-Drug Resistant Organisms: None Reported Past Surgical History: No Surgical Hx Reported Additional Past Surgical History / Comment(s): right knee replaced Past Anesthesia/Blood Transfusion Reactions: No Reported Reaction Past Psychological History: No Psychological Hx Reported Smoking Status: Former smoker Past Alcohol Use History: None Reported Past Drug Use History: None Reported - Past Family History Mother Additional Family Medical History / Comment(s): car accident Father Family Medical History: No Reported History Medications and Allergies Home Medications Medication Instructions Recorded Confirmed Type Aspirin EC [Ecotrin Low Dose] 81 mg PO DAILY 02/22/21 10/07/21 History Finasteride [Proscar] 5 mg PO DAILY 02/22/21 10/07/21 History [place]-3 Fatty Acids/Fish Oil [Fish 1 cap PO DAILY 02/22/21 10/07/21 History Oil 1,000 mg Softgel] Sertraline [Zoloft] 50 mg PO DAILY 02/22/21 10/07/21 History Tamsulosin HCl [Flomax] 0.4 mg PO DAILY 02/22/21 10/07/21 History Gabapentin [Neurontin] 100 mg PO TID #6 cap 02/25/21 10/07/21 Rx INSULIN ASPART (NovoLOG) [NovoLOG 20 unit SQ TID-W/MEALS ml 02/25/21 10/07/21 Rx (formulary)] Melatonin 5 mg PO HS PRN tablet 02/25/21 10/07/21 Rx Diphenox-Atrop 2.5-0.025 mg 1 tab PO QID PRN 10/07/21 10/07/21 History [Lomotil] Insulin Detemir [Levemir Flextouch 45 units SQ BID 10/07/21 10/07/21 History Pen] Liraglutide [Victoza 3-Jarred] 1.2 mg SQ DAILY 10/07/21 10/07/21 History Multivitamins, Thera [Multivitamin 1 tab PO DAILY 10/07/21 10/07/21 History (formulary)] Allergies Allergy/AdvReac Type Severity Reaction Status Date / Time Penicillins Allergy Feet Verified 10/07/21 18:33 swelled, was given at the same time as Sulfa Sulfa (Sulfonamide Allergy Feet Verified 10/07/21 18:33 Antibiotics) swelled, was given at the same time as Sulfa Physical Exam Vitals: Vital Signs Temp Pulse Pulse Resp BP BP Pulse Ox 10/08/21 08:00 98.5 F 75 19 107/56 94 L 10/08/21 03:52 98.7 F 64 18 162/67 96 10/08/21 00:00 98.2 F 74 18 153/54 96 10/07/21 20:00 98.1 F 79 18 163/89 96 10/07/21 19:50 97.2 F L 81 20 156/70 98 10/07/21 19:00 97.8 F 72 20 149/80 97 10/07/21 18:00 98.2 F 76 20 158/76 98 10/07/21 16:00 97.8 F 72 80 16 164/87 95 Intake and Output 10/07/21 10/08/21 10/08/21 22:59 06:59 14:59 Intake Total 10 270 Output Total 800 275 Balance 10 -800 -5 Intake: IV 10 10 Invasive Line 1 10 10 Oral 260 Output: Urine 800 275 Other: Voiding Method Urinal Urinal Diaper Weight 158.757 kg Results 10/08/21 07:31 10/08/21 07:31 Cardiac Enzymes 10/07/21 10/07/21 Range/Units 16:04 16:04 AST 48 (17-59) U/L Troponin I 0.013 (0.000-0.034) ng/mL Coagulation 10/07/21 Range/Units 16:04 PT 10.8 (9.0-12.0) sec APTT 23.1 (22.0-30.0) sec CBC 10/07/21 10/08/21 Range/Units 16:04 07:31 WBC 6.7 6.2 (3.8-10.6) k/uL RBC 4.07 L 3.85 L (4.30-5.90) m/uL Hgb 12.5 L 12.4 L (13.0-17.5) gm/dL Hct 39.5 37.7 L (39.0-53.0) % Plt Count 133 L 138 L (150-450) k/uL Comprehensive Metabolic Panel 10/07/21 10/08/21 Range/Units 16:04 07:31 Sodium 137 137 (137-145) mmol/L Potassium 4.1 4.2 (3.5-5.1) mmol/L Chloride 103 104 (98-107) mmol/L Carbon Dioxide 28 29 (22-30) mmol/L BUN 20 18 (9-20) mg/dL Creatinine 1.12 1.06 (0.66-1.25) mg/dL Glucose 87 111 H (74-99) mg/dL Calcium 8.8 8.4 (8.4-10.2) mg/dL AST 48 (17-59) U/L ALT 20 (4-49) U/L Alkaline Phosphatase 68 (38-126) U/L Total Protein 6.3 (6.3-8.2) g/dL Albumin 3.4 L (3.5-5.0) g/dL Current Medications Generic Name Dose Route Start Last Admin Trade Name Freq PRN Reason Stop Dose Admin Aspirin 81 mg 10/08/21 09:00 10/08/21 08:59 Aspirin 81 Mg PO 81 mg DAILY JAQUI Administration Enoxaparin Sodium 40 mg 10/08/21 09:00 10/08/21 09:01 Enoxaparin 40 Mg/0.4 Ml Syringe SQ 40 mg DAILY JAQUI Administration Famotidine 20 mg 10/08/21 09:00 10/08/21 08:59 Famotidine 20 Mg/2 Ml Vial IV 20 mg Q12HR JAQUI Administration Finasteride 5 mg 10/08/21 09:00 10/08/21 08:59 Finasteride 5 Mg Tab PO 5 mg DAILY JAQUI Administration Gabapentin 100 mg 10/07/21 22:00 10/08/21 08:59 Gabapentin 100 Mg Cap PO 100 mg TID JAQUI Administration Sodium Chloride 1,000 mls @ 100 mls/hr 10/07/21 17:45 10/08/21 05:37 Saline 0.9% IV Not Given .Q10H JAQUI Insulin Aspart 20 unit 10/08/21 07:30 10/08/21 09:00 Insulin Aspart (Novolog) 100 Unit/Ml Vial SQ 20 unit TID-W/MEALS JAQUI Administration Insulin Aspart 0 unit 10/07/21 21:45 10/08/21 09:00 Insulin Aspart (Novolog) 100 Unit/Ml Vial SQ Not Given ACHS JAQUI Protocol Melatonin 5 mg 10/07/21 21:21 Melatonin 5 Mg Tablet PO HS PRN Insomnia Multivitamins 1 each 10/08/21 09:00 10/08/21 08:59 Multivitamins, Thera 1 Each Tab PO 1 each DAILY JAQUI Administration Sertraline HCl 50 mg 10/08/21 09:00 10/08/21 08:59 Sertraline 50 Mg Tab PO 50 mg DAILY JAQUI Administration Tamsulosin HCl 0.4 mg 10/08/21 09:00 10/08/21 08:59 Tamsulosin 0.4 Mg Cap.Er.24h PO 0.4 mg DAILY JAQUI Administration Intake and Output 10/07/21 10/08/21 10/08/21 22:59 06:59 14:59 Intake Total 10 270 Output Total 800 275 Balance 10 -800 -5 Intake: IV 10 10 Invasive Line 1 10 10 Oral 260 Output: Urine 800 275 Other: Voiding Method Urinal Urinal Diaper Weight 158.757 kg 10/08/21 07:31 10/08/21 07:31
[2021-10-08] MEDS ORDERED: APIXABAN 2.5 MG TABLET PO SCH (09:30)
--- NOTE | 2021-10-08 11:50 | US ---
EXAMINATION TYPE: US carotid duplex BILAT DATE OF EXAM: 10/08/2021 COMPARISON: NONE CLINICAL HISTORY: Stenosis. Stenosis EXAM MEASUREMENTS: RIGHT: Peak Systolic Velocity (PSV) cm/sec ----- Right CCA: 65.1 ----- Right ICA: 62.5 ----- Right ECA: 98.4 ICA/CCA ratio: 1.0 RIGHT: End Diastole cm/sec ----- Right CCA: 11.6 ----- Right ICA: 11.6 ----- Right ECA: 6.3 LEFT: Peak Systolic Velocity (PSV) cm/sec ----- Left CCA: 58.1 ----- Left ICA: 55.9 ----- Left ECA: 87.9 ICA/CCA ratio: 1.0 LEFT: End Diastole cm/sec ----- Left CCA: 10.2 ----- Left ICA: 13.1 ----- Left ECA: 0.0 VERTEBRALS (direction of flow): Right Vertebral: Antegrade Left Vertebral: Antegrade Rhythm: Normal IMPRESSION: Less than 50% stenosis of the bilateral carotid bifurcations. Criteria for Assigning % of Stenosis / Diameter reduction (Estimation based on the indirect measurements of the internal carotid artery velocities (ICA PSV). 1. Normal (no stenosis)=ICA PSV < 125 cm/s: ratio < 2.0: ICA EDV<40 cm/s. 2. Less than 50% stenosis=ICA PSV < 125 cm/s: ratio < 2.0: ICA EDV<40 cm/s. 3. 50 to 69% stenosis=ICA PSV of 125 to 230 cm/s: ration 2.0 ? 4.0: ICA EDV 40-100 cm/s. 4. Greater than 70% stenosis to near occlusion= ICA PSV > 230 cm/s: ratio > 4.0: ICA EDV > 100 cm/s. 5. Near occlusion= ICA PSV velocities may be low or undetectable: variable ratio and ICA EDV. 6. Total occlusion=unable to detect flow.
[2021-10-08 12:14] LABS: Glucose,Whole Blood 223 mg/dL (70-110)
[2021-10-08 12:17] LABS: Chol/HDL Ratio 4.25 Ratio; LDL Cholesterol,Calculated 115.3 mg/dL (0.0-131.0); VLDL Calculation 19.34 mg/dL (5.00-40.00)
--- NOTE | 2021-10-08 13:54 | CA ---
Transthoracic Echo Report Name: Jeferson Hughes Age: 86 Gender: M : 1935 Exam Date: 10/08/2021 07:28 Exam Location: [facility] Ht (in): 72 Wt (lb): 350 Ordering Physician: Brian Roblero DO Attending/Referring Phys: Cad Designer Chrissy Platt RDCS Procedure CPT: Indications: Thrombus Cardiac Hx: Technical Quality: Technically difficult study Contrast 1: Lumason Total Dose (mL): 3 Contrast 2: Total Dose (mL): MEASUREMENTS (Male / Female) Normal Values 2D ECHO LV Diastolic Diameter PLAX 4.6 cm 4.2 - 5.9 / 3.9 - 5.3 cm LV Systolic Diameter PLAX 3.4 cm IVS Diastolic Thickness 2.1 cm 0.6 - 1.0 / 0.6 - 0.9 cm LVPW Diastolic Thickness 1.9 cm 0.6 - 1.0 / 0.6 - 0.9 cm LV Relative Wall Thickness 0.9 RV Internal Dim ED PLAX 3.6 cm M-MODE Aortic Root Diameter MM 3.2 cm LA Systolic Diameter MM 5.1 cm LA Ao Ratio MM 1.6 DOPPLER AV Peak Velocity 312.2 cm/s AV Peak Gradient 39.0 mmHg AV Mean Velocity 215.3 cm/s AV Mean Gradient 21.3 mmHg AV Velocity Time Integral 72.8 cm LVOT Peak Velocity 79.4 cm/s LVOT Peak Gradient 2.5 mmHg TR Peak Velocity 305.5 cm/s TR Peak Gradient 37.3 mmHg Right Ventricular Systolic Press 41.8 mmHg FINDINGS Left Ventricle Severely increased left ventricular wall thickness. Left ventricular cavity size normal. Left ventricular ejection fraction is estimated at 50-55 %. Right Ventricle Right ventricle at upper limits of normal. Mild pulmonary hypertension. Right Atrium Right atrium not well visualized. Left Atrium Mildly increased left atrial area. No evidence for an atrial septal defect. Mitral Valve Mild mitral regurgitation. Mitral annulus calcification Aortic Valve [id number] aortic stenosis with a peak gradient of 39 mmHg and a mean gradient of 21 mmHg. calcified aortic valve Tricuspid Valve [id number] tricuspid regurgitation. Normal tricuspid valve Pulmonic Valve Pulmonic valve not well visualized. Pericardium No pericardial effusion. Aorta Normal size aortic root and proximal ascending aorta. CONCLUSIONS 1. Normal left ventricle size with borderline systolic function 2. Mild to moderate aortic stenosis 3. Mild mitral regurgitation 4. Mild tricuspid regurgitation Previewed by: Dr. Mery Dorsey MD (Electronically Signed) Final Date: 08 October 2021 13:53
--- NOTE | 2021-10-08 14:44 | MR ---
EXAMINATION TYPE: MR brain wo con DATE OF EXAM: 10/08/2021 COMPARISON: CT brain yesterday HISTORY: Right frontal subcortical/cortical region Multiplanar multiecho imaging of the brain with no contrast. There is diffuse cerebral atrophy. There is no mass effect or midline shift. No sign of intracranial hemorrhage. There is thinning of the corpus callosum. Diffusion images show no evidence of an acute i nfarct. There is enlargement of the ventricles there is linear increased signal in the periventricula r white matter. There is 2 cm wedge-shaped area of signal on the FLAIR images in the lateral right te mporal lobe that could be subacute infarct. The sella turcica is intact. No evidence of orbital mass. The brainstem is intact. There is some brai nstem atrophy. IMPRESSION: Diffuse cerebral atrophy. Wedge-shaped area of signal on the FLAIR images lateral right temporal lobe could be subacute infarct. Hydrocephalus with linear white matter signal changes around the ventricl es probably related to nonobstructive hydrocephalus.
[2021-10-08 16:57] LABS: Glucose,Whole Blood 107 mg/dL (70-110)
[2021-10-08] MEDS: amLODIPine 5 MG TAB PO SCH (17:15)
[2021-10-08 17:18] LABS: Glucose,Whole Blood 235 mg/dL (70-110)
[2021-10-08 19:15] LABS: Glucose,Whole Blood 284 mg/dL (70-110)
[2021-10-08] MEDS: FAMOTIDINE 20 MG TAB PO SCH (21:32)
[2021-10-09] MEDS: hydrALAZINE HCL 25 MG TAB PO PRN (03:37)
[2021-10-09] MEDS: SODIUM CHLORIDE 0.9% 1,000 ML IV SCH ×2 (03:53→21:04)
[2021-10-09 06:58] LABS: Glucose,Whole Blood 159 mg/dL (70-110)
[2021-10-09] MEDS ORDERED: INSULIN DETEMIR (LEVEMIR) 100 UNIT/ML SYR SQ SCH ×2 (07:00→09:00)
[2021-10-09] MEDS: INSULIN DETEMIR (LEVEMIR) 100 UNIT/ML SYR SQ SCH (07:05)
[2021-10-09] MEDS: INSULIN ASPART (NovoLOG) 100 UNIT/ML VIAL SQ SCH ×7 (07:06→21:02)
[2021-10-09 07:50] LABS: Basophils % (A) 1 %; Eosinophils # (A) 0.1 k/uL (0-0.7); Eosinophils % (A) 1 %; HCT 39.4 % (39.0-53.0); HGB 12.8 gm/dL (13.0-17.5); Lymphocytes # (A) 0.6 k/uL (1.0-4.8); Lymphocytes % (A) 13 %; MCH 31.6 pg (25.0-35.0); MCHC 32.6 g/dL (31.0-37.0); MCV 96.9 fL (80.0-100.0); Mean Platelet Volume 7.7; Monocytes # (A) 0.4 k/uL (0-1.0); Monocytes % (A) 7 %; Neutrophils # (A) 3.7 k/uL (1.3-7.7); Neutrophils % (A) 76 %; Platelet Count 132 k/uL (150-450); RBC 4.06 m/uL (4.30-5.90); RDW 13.4 % (11.5-15.5); WBC 4.8 k/uL (3.8-10.6)
[2021-10-09 08:03] LABS: Calcium 8.7 mg/dL (8.4-10.2); Magnesium 1.7 mg/dL (1.6-2.3); Potassium 4.3 mmol/L (3.5-5.1)
[2021-10-09] MEDS: amLODIPine 5 MG TAB PO SCH ×2 (08:28→21:02)
[2021-10-09] MEDS: GABAPENTIN 100 MG CAP PO SCH ×3 (08:28→21:02)
[2021-10-09] MEDS: SERTRALINE 50 MG TAB PO SCH (08:28)
[2021-10-09] MEDS: MULTIVITAMINS, THERA 1 EACH TAB PO SCH (08:28)
[2021-10-09] MEDS: FINASTERIDE 5 MG TAB PO SCH (08:28)
[2021-10-09] MEDS: TAMSULOSIN 0.4 MG CAP.ER.24H PO SCH (08:28)
[2021-10-09] MEDS: FAMOTIDINE 20 MG TAB PO SCH ×2 (08:28→21:02)
[2021-10-09] MEDS: ASPIRIN 325 MG TAB PO SCH (08:28)
[2021-10-09] MEDS: CYANOCOBALAMIN 1,000 MCG/ML 1 ML VIAL IM SCH (08:29)
[2021-10-09 11:15] LABS: Glucose,Whole Blood 158 mg/dL (70-110)
--- NOTE | 2021-10-09 12:39 | P.PN ---
Subjective Progress Note Date: 10/09/21 The patient is seen at bedside and is accompanied by his daughter. She stated the her father has been having a fall every 6 month but denies him having any loss of consicousness, jerking of extremities of seizures. He has been having falls for for some time and years but unsure exactly. He has bad needs, DM with possible neuropathy. He has urinary incontinence for years but has prostate issues. He also has short term memory loss that is progressing over the past few years. She denies patient having any new focal weakness. Objective - Vital Signs Vital signs: Vital Signs Temp 97.7 F 10/09/21 11:26 Pulse 57 L 10/09/21 11:26 Resp 19 10/09/21 11:26 BP 162/82 10/09/21 11:26 Pulse Ox 94 L 10/09/21 11:26 FiO2 Intake & Output 10/08/21 10/09/21 10/09/21 18:59 06:59 18:59 Intake Total 2198 480 Output Total 275 800 Balance 1923 -800 480 Intake: IV 1220 Invasive Line 1 20 Sodium Chloride 0.9% 1, 1200 000 ml @ 50 mls/hr IV . Q20H [facility] Rx#:[id number] Oral 978 480 Output: Urine 275 800 Other: Voiding Method Diaper Diaper Diaper # Voids 3 2 - Exam GENERAL: The patient is lying in bed and is not in acute distress. Is morbidly obese. NEUROLOGICAL: Higher mental function: The patient is awake, alert, oriented to self and place. Not time. He is able to identify simple objects (such as pen and watch). Patient is following commands. No aphasia and no neglect. Cranial nerves: The pupils are round, equal and reactive to light and accommodation. Visual simmons are full to confrontation throughout. Extraocular movement is intact no nystagmus is noted. Facial sensation is normal to touch throughout. The facial strength is normal throughout. Hearing is mildly decreased bilaterally to hand rub. Tongue is midline and moved [id number] without any difficulty. No dysarthria is noted. Shoulder shrug is normal bilaterally. Motor: The strength is 5 over 5 throughout uppers while lowers is left knee extension is 4+ to 5- (he stated old). Normal tone and bulk. Cerebellum: Normal finger to nose bilaterally. Sensation: Sensation is normal to touch throughout. Reflexes (right/left): 1+ throughout. Plantars are mute bilaterally. SOME OF THE WORK-UP IN OUR FACILITY DURING THIS VISIT CONSISTED OF: TSH is 4.08 and free T4 is 0.94 Hemoglobin A1c 7.6 TSH is 4.08 Vitamin B12 is 260 and the normal supposed to be between 200-944 which is cons idered severely low normal Folate is 18.20. Bey virus is was not detected. CT of the head is reported as supple cortical hypodensity lateral right frontal lobe, axial image 31 and coronal image 37 not clearly seen on prior exam. Unable to exclude a small area of acute or subacute ischemia. If there is no focal left-sided neurological deficit, this may represent partial volume aging. Again clinically correlate. Mild to moderate hydrocephalus with eventration 0.4 one is unchanged. Consider underlying NPH. I personally reviewed the CT of the head and I agree with the finding. Patient prior CT in our facility was on on 2020 for comparison and I feel the patient's probable NPH seems unchanged MRI of the brain is reported as diffuse cerebral atrophy. Wedge-shaped area of signal on the flare image lateral right temporal lobe could be subacute infarct. Hydrocephalus with linear white matter signal changes around the ventricle probably related to nonobstructive hydrocephalus. I personally reviewed the MRI and I do not agree this is acute or subacute. I feel this is more chronic over the temporal region Carotid duplex is reported as less than 50% stenosis bilateral carotid b ifurcation. 2-D echo was reported as normal left ventricle size with borderline systolic function. Mild to moderate aortic stenosis. Left atrium is mildly increased left atrial area. - Labs CBC & Chem 7: 10/09/21 07:25 10/09/21 07:25 Labs: Abnormal Lab Results - Last 24 Hours (Table) 10/08/21 10/08/21 10/09/21 Range/Units 17:16 19:13 06:57 RBC (4.30-5.90) m/uL Hgb (13.0-17.5) gm/dL Plt Count (150-450) k/uL Lymphocytes # (1.0-4.8) k/uL Glucose (74-99) mg/dL POC Glucose (mg/dL) 235 H 284 H 159 H (70-110) mg/dL 10/09/21 10/09/21 10/09/21 Range/Units 07:25 07:25 11:13 RBC 4.06 L (4.30-5.90) m/uL Hgb 12.8 L (13.0-17.5) gm/dL Plt Count 132 L (150-450) k/uL Lymphocytes # 0.6 L (1.0-4.8) k/uL Glucose 161 H (74-99) mg/dL POC Glucose (mg/dL) 158 H (70-110) mg/dL Assessment and Plan Assessment: Generalized weakness for the last 1-2 weeks. MRI Brain is reported as possible subacute stroke over right temporal but I feel that is more chronic and not acute or subacute. 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 According to the daughter the patient has been having recurrent falls once every 6 months, urinary incontinence and memory loss going on for at least a couple years. Falls seems due to multifactorial: NPH, Diabetic neuropathy and his knee issues. Atrial fibrillation not on any anticoagulation History of coronary artery disease Diabetes mellitus Hypertension Morbid Obesity Plan: I personally reviewed the MRI and I don't think the patient has acute or subacute ischemic stroke but rather I feel the patient the right temporal region noted is more chronic. I personally discussed with the patient daughter regarding likely diagnosis of normal pressure hydrocephalus and the consideration of follow-up with a neurologist and neurosurgeon for a large volume tap and if there is no improvement for a consideration of CUSTOMER ORDERS CLERK shunt but from the presentation I don't think the large volume tap or CUSTOMER ORDERS CLERK shunt will help since she's been having these symptoms for some years now. Regarding the low normal vitamin B-12 I placed the patient on vitamin B12 IM 1000 g daily for 2 days and after that by mouth Continue neuro checks PT OT and IMAGERY INTELLIGENCE are consulted Regarding atrial fibrillation recommend anticoagulation but I discussed this with the primary team as well as the patient daughter since he's having recurrent falls which can lead to intracranial bleed and I feel the risk outweighed the benefits of starting anticoagulation and instead can be on dual antiplatelet from a neurological perspective but will defer the final decision between the patient's daughter primary team and cardiology. We'll defer the rest of the medical management to the primary team Comment the patient follow up with a neurologist as an outpatient within 1-2 weeks Otherwise no additional workup is needed. Kevin Newton M.D. Neuro-hospitalist Time with Patient: Less than 30
--- NOTE | 2021-10-09 14:11 | P.PN ---
Subjective Progress Note Date: 10/09/21 This is a [id number] male who presented with generalized weakness more on the left side. He was found to be in atrial fibrillation with no anticoagulation on presentation. He has a history of chronic dyspnea on exertion and occasional peripheral edema. He verbalizes that he has a couple falls a week at home. Has a history of diabetes. History of left-sided weakness that he is complaining is worse now. Computed tomography scan of the brain showed cortical hypodensity with mild to moderate hydrocephalus consistent with NPH. We recommended adding anticoagulation however neurology is advising against this due to history of falling. This was also discussed with the family who wish to avoid anticoagulation due to falls despite being aware of the risk of stroke with underlying PAF. Neurology is feeling patient's issues mostly related to likely diagnosis of NPH. They're recommending outpatient follow-up with neurologist and neurosurgeon. Echocardiogram with Doppler study showed low normal LV systolic function with an ejection fraction of 50-55%, mild pulmonary hypertension, mild MR and mild to moderate with a peak gradient of 39 mmHg and mean gradient 29 mmHg. On examination today patient is sitting up in a chair. He is overall feeling well. Continues to feel weak, unchanged. Monitor tracings show evidence of intermittent second degree type I that are asymptomatic. Objective - Vital Signs Vital signs: Vital Signs Temp 97.7 F 10/09/21 11:26 Pulse 57 L 10/09/21 11:26 Resp 19 10/09/21 11:26 BP 162/82 10/09/21 11:26 Pulse Ox 94 L 10/09/21 11:26 FiO2 Intake & Output 10/08/21 10/09/21 10/09/21 18:59 06:59 18:59 Intake Total 2198 480 Output Total 275 800 Balance 1923 -800 480 Intake: IV 1220 Invasive Line 1 20 Sodium Chloride 0.9% 1, 1200 000 ml @ 50 mls/hr IV . Q20H [facility] Rx#:[id number] Oral 978 480 Output: Urine 275 800 Other: Voiding Method Diaper Diaper Diaper # Voids 3 2 - Exam PHYSICAL EXAMINATION: HEENT: [Head is atraumatic, normocephalic. Pupils equal, round. Neck is supple. There is no elevated jugular venous pressure.] HEART EXAMINATION: [Heart sounds regular, S1 and S2 a systolic murmur.] CHEST EXAMINATION:[ Lungs are clear to auscultation and precussion. No chest wall tenderness is noted on palpation or with deep breathing.] ABDOMEN: [ Soft, nontender. Bowel sounds are heard. No organomegaly noted]. EXTREMITIES:[ Evidence of mild peripheral edema and no calf tenderness noted]. . - Labs CBC & Chem 7: 10/09/21 07:25 10/09/21 07:25 Labs: Abnormal Lab Results - Last 24 Hours (Table) 10/08/21 10/08/21 10/09/21 Range/Units 17:16 19:13 06:57 RBC (4.30-5.90) m/uL Hgb (13.0-17.5) gm/dL Plt Count (150-450) k/uL Lymphocytes # (1.0-4.8) k/uL Glucose (74-99) mg/dL POC Glucose (mg/dL) 235 H 284 H 159 H (70-110) mg/dL 10/09/21 10/09/21 10/09/21 Range/Units 07:25 07:25 11:13 RBC 4.06 L (4.30-5.90) m/uL Hgb 12.8 L (13.0-17.5) gm/dL Plt Count 132 L (150-450) k/uL Lymphocytes # 0.6 L (1.0-4.8) k/uL Glucose 161 H (74-99) mg/dL POC Glucose (mg/dL) 158 H (70-110) mg/dL Assessment and Plan Assessment: 1. Left-sided weakness neurology has reviewed the MRI and feels this is not an acute infarct 2. Paroxysmal atrial fibrillation, not anticoagulated, his CHADs2-VASC2 score is 5 3. Possible NPH 4. Diabetes 5. intermittent second degreee type I, asymptomatic Plan: From cardiology's perspective medications were reviewed and continue the same. Patient's family declined anticoagulation despite risk of CVA due to recurrent falls at home. From my standpoint will follow the patient on an as-needed basis. These do not hesitate to contact us with questions. LACER AND TIER note has been reviewed, I agree with a documented findings and plan of care. Patient was seen and examined.
[2021-10-09 16:35] LABS: Glucose,Whole Blood 149 mg/dL (70-110)
[2021-10-09 19:54] LABS: Glucose,Whole Blood 186 mg/dL (70-110)
--- NOTE | 2021-10-09 21:00 | P.PN ---
Subjective his is a pleasant 80 years old male with past medical history of Atrial Fibrillation, Coronary Artery Disease , Diabetes Mellitus, Hearing Disorder / Deafness, Hypertension, , Chronic right leg cellulitis Patient is fully awake and oriented, he states he lives in his home by himself, he states someone called the ambulance for him because he was not acting right And he admits he fell on the floor but he cannot remember what happened, last thing he remembers he was just acting normal in his house without specification. Patient complains from left shoulder pain and she states that yesterday his left leg and arm or weaker than usual, he has chronic weakness in his left side, he thinks is improved but not back to normal. He denies headache or dizziness, no numbness. He has chronic tingling in his legs and feet and he is on gabapentin for it. Denies chest pain or dyspnea but he has frequent dry cough. No abdominal pain or vomiting or diarrhea. No urinary complaints He denies smoking, alcohol or illicit drugs. He states that he has history of A. fib but he thinks he was on A. fib although he wasn't sure and states that his daughter antonieta who takes care of his medication Patient denies any recent changes of medication. She is taken Levemir 45 units twice a day and NovoLog 20 units with meals. He has good appetite Vitals looks stable. Labs are remarkable. TSH is normal. Urine analysis is still suspicious of infection CT of the brain: possible small area of acute or subacute ischemia. Mild to m oderate hydrocephalus Chest x-ray: no acute process EKG A. fib with rate of 74. QRS 89. QT 370. QTc 398. Left axis. Poor R-wave progression. LVH criteria. No acute ST change. In the emergency room patient continued on aspirin 81 mg Normal saline at 100 mL per hour i called daughter Antonieta and left a message to call back 10/09/2021 Patient today awake and alert, sitting in chair comfortable. Denies any specific symptoms, no more weakness or numbness. No slurred speech no headaches or dizziness. Also no diarrhea or vomiting or urinary complaints. Simulation Specialist recommended Eliquis, patient and daughter declined Eliquis because of risk of falling, neurologist agrees to start Eliquis but he recommended Plavix. When I talked to the patient and daughter they want to discuss it and t hink about. Currently they want to continue only with aspirin he was taking at home. Glucose is controlled with Levemir 10 units and NovoLog 20 units with meals plus sliding scale Vitamin B12 replacement started for the neurologist Hydralazine started today 25 mg twice a day, Norvasc increased to 5 mg twice a day. Continue with gentle hydration and monitor blood pressure. Currently he is on normal saline at 50 mL per hour Objective - Vital Signs Vital signs: Vital Signs Temp 98.0 F 10/09/21 08:00 Pulse 82 10/09/21 08:00 Resp 19 10/09/21 08:00 BP 150/92 10/09/21 08:00 Pulse Ox 97 10/09/21 08:00 FiO2 Intake & Output 10/08/21 10/09/21 10/09/21 18:59 06:59 18:59 Intake Total 2198 480 Output Total 275 800 Balance 1923 -800 480 Intake: IV 1220 Invasive Line 1 20 Sodium Chloride 0.9% 1, 1200 000 ml @ 50 mls/hr IV . Q20H [facility] Rx#:[id number] Oral 978 480 Output: Urine 275 800 Other: Voiding Method Diaper Diaper Diaper # Voids 3 2 - Exam -GENERAL: The patient is alert and oriented x3, not in any acute distress. Morbidly obese HEENT: Pupils are round and equally reacting to light. EOMI. No scleral icterus. No conjunctival pallor. Normocephalic, atraumatic. No pharyngeal erythema. No thyromegaly. CARDIOVASCULAR: S1 and S2 present. No murmurs, rubs, or gallops. PULMONARY: Chest is clear to auscultation, no wheezing or crackles. ABDOMEN: Soft, nontender, nondistended, normoactive bowel sounds. No palpable organomegaly. MUSCULOSKELETAL: No joint swelling or deformity. EXTREMITIES: No cyanosis, clubbing, or pedal edema. NEUROLOGICAL: Gross neurological examination did not reveal any focal deficits. SKIN: No rashes. no petechiae. - Labs CBC & Chem 7: 10/09/21 07:25 10/09/21 07:25 Labs: Abnormal Lab Results - Last 24 Hours (Table) 10/08/21 10/08/21 10/08/21 Range/Units 07:31 12:12 17:16 RBC (4.30-5.90) m/uL Hgb (13.0-17.5) gm/dL Plt Count (150-450) k/uL Lymphocytes # (1.0-4.8) k/uL Glucose (74-99) mg/dL POC Glucose (mg/dL) 223 H 235 H (70-110) mg/dL Hemoglobin A1c 7.6 H (0.0-6.0) % 10/08/21 10/09/21 10/09/21 Range/Units 19:13 06:57 07:25 RBC (4.30-5.90) m/uL Hgb (13.0-17.5) gm/dL Plt Count (150-450) k/uL Lymphocytes # (1.0-4.8) k/uL Glucose 161 H (74-99) mg/dL POC Glucose (mg/dL) 284 H 159 H (70-110) mg/dL Hemoglobin A1c (0.0-6.0) % 10/09/21 Range/Units 07:25 RBC 4.06 L (4.30-5.90) m/uL Hgb 12.8 L (13.0-17.5) gm/dL Plt Count 132 L (150-450) k/uL Lymphocytes # 0.6 L (1.0-4.8) k/uL Glucose (74-99) mg/dL POC Glucose (mg/dL) (70-110) mg/dL Hemoglobin A1c (0.0-6.0) % Assessment and Plan Assessment: Transient period of weakness and confusion related to hyperglycemia on admission. 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 Also there is a concern of stroke on CT imaging. Terry augustin I had lengthy discussion with the patient, daughter at bedside as well as neurologist also in the room. Both patient and daughter have refused Eliquis recommended by favor maker, risks and benefits are explained for details, neurologist and favor maker team are aware, neurologist recommended Plavix as well I discussed these recommendations with the patient and daughter they going to think about it, but so far we don't want Plavix to be started on to continue with aspirin which he was taking at home Continue with aspirin. Simulation Specialist signed off. Neurologist recommended no further workup Patient sugar has been controlled today with Levemir 10 units (was taken 90 units at home) +20 units with meals, also 2-3 extra units per sliding scale. Labs and medication were reviewed.. Continue same treatment. Continue with symptomatic treatment. Resume home medication. Monitor lytes and vitals. DVT and GI prophylaxis. Further recommendations as per clinical course of the jose f levy DVT prophylaxis: Subcutaneous heparin GI Prophylaxis: Pepcid PT/OT: Pending Prognosis is guarded
[2021-10-09] MEDS: hydrALAZINE HCL 25 MG TAB PO SCH (21:02)
[2021-10-10] MEDS: hydrALAZINE HCL 25 MG TAB PO PRN (04:13)
[2021-10-10 07:07] LABS: Glucose,Whole Blood 174 mg/dL (70-110)
[2021-10-10] MEDS: INSULIN ASPART (NovoLOG) 100 UNIT/ML VIAL SQ SCH ×7 (07:07→20:11)
[2021-10-10] MEDS: INSULIN DETEMIR (LEVEMIR) 100 UNIT/ML SYR SQ SCH (07:08)
[2021-10-10] MEDS: GABAPENTIN 100 MG CAP PO SCH ×3 (09:25→20:11)
[2021-10-10] MEDS: ASPIRIN 325 MG TAB PO SCH (09:25)
[2021-10-10] MEDS: MULTIVITAMINS, THERA 1 EACH TAB PO SCH (09:25)
[2021-10-10] MEDS: SERTRALINE 50 MG TAB PO SCH (09:25)
[2021-10-10] MEDS: FAMOTIDINE 20 MG TAB PO SCH ×2 (09:25→20:11)
[2021-10-10] MEDS: TAMSULOSIN 0.4 MG CAP.ER.24H PO SCH (09:26)
[2021-10-10] MEDS: amLODIPine 5 MG TAB PO SCH ×2 (09:26→20:11)
[2021-10-10] MEDS: hydrALAZINE HCL 25 MG TAB PO SCH ×2 (09:26→20:11)
[2021-10-10] MEDS: FINASTERIDE 5 MG TAB PO SCH (09:26)
[2021-10-10 11:56] LABS: Glucose,Whole Blood 204 mg/dL (70-110)
--- NOTE | 2021-10-10 15:15 | P.PN ---
Subjective his is a pleasant 80 years old male with past medical history of Atrial Fibrillation, Coronary Artery Disease , Diabetes Mellitus, Hearing Disorder / Deafness, Hypertension, , Chronic right leg cellulitis Patient is fully awake and oriented, he states he lives in his home by himself, he states someone called the ambulance for him because he was not acting right And he admits he fell on the floor but he cannot remember what happened, last thing he remembers he was just acting normal in his house without specification. Patient complains from left shoulder pain and she states that yesterday his left leg and arm or weaker than usual, he has chronic weakness in his left side, he thinks is improved but not back to normal. He denies headache or dizziness, no numbness. He has chronic tingling in his legs and feet and he is on gabapentin for it. Denies chest pain or dyspnea but he has frequent dry cough. No abdominal pain or vomiting or diarrhea. No urinary complaints He denies smoking, alcohol or illicit drugs. He states that he has history of A. fib but he thinks he was on A. fib although he wasn't sure and states that his daughter antonieta who takes care of his medication Patient denies any recent changes of medication. She is taken Levemir 45 units twice a day and NovoLog 20 units with meals. He has good appetite Vitals looks stable. Labs are remarkable. TSH is normal. Urine analysis is still suspicious of infection CT of the brain: possible small area of acute or subacute ischemia. Mild to m oderate hydrocephalus Chest x-ray: no acute process EKG A. fib with rate of 74. QRS 89. QT 370. QTc 398. Left axis. Poor R-wave progression. LVH criteria. No acute ST change. In the emergency room patient continued on aspirin 81 mg Normal saline at 100 mL per hour i called daughter Antonieta and left a message to call back 10/09/2021 Patient today awake and alert, sitting in chair comfortable. Denies any specific symptoms, no more weakness or numbness. No slurred speech no headaches or dizziness. Also no diarrhea or vomiting or urinary complaints. Tool Room Attendant recommended Eliquis, patient and daughter declined Eliquis because of risk of falling, neurologist agrees to start Eliquis but he recommended Plavix. When I talked to the patient and daughter they want to discuss it and t hink about. Currently they want to continue only with aspirin he was taking at home. Glucose is controlled with Levemir 10 units and NovoLog 20 units with meals plus sliding scale Vitamin B12 replacement started for the neurologist Hydralazine started today 25 mg twice a day, Norvasc increased to 5 mg twice a day. Continue with gentle hydration and monitor blood pressure. Currently he is on normal saline at 50 mL per hour 10/10/2021 Patient awake with chronic weakness in his left side extremities, no more worsening. He has some pain in his left shoulder but with no restriction of movement and he can elevate his arm above his head. He has normal antegrade. Today patient also declined Plavix and he wants to continue with his home dose of aspirin. His sugar is controlled with sliding scale amount going to increase his Levemir to 23 units tomorrow morning. Continue with vitamin B12 We increased his Norvasc to 5 mg twice a day and hydralazine 25 mg twice a day keep her blood pressure. DC IV fluids Patient recommended to discharge to rehab Possible discharge in 24-48 hours Objective - Vital Signs Vital signs: Vital Signs Temp 98.0 F 10/10/21 08:53 Pulse 74 10/10/21 08:53 Resp 19 10/10/21 08:53 BP 171/78 10/10/21 08:53 Pulse Ox 95 10/10/21 08:53 FiO2 Intake & Output 10/09/21 10/10/21 10/10/21 18:59 06:59 18:59 Intake Total 660 10 240 Balance 660 10 240 Intake: IV 10 Invasive Line 1 10 Oral 660 240 Other: Voiding Method Diaper Urinal Urinal Diaper Diaper # Voids 3 1 # Bowel Movements 2 1 - Exam -GENERAL: The patient is alert and oriented x3, not in any acute distress. Mo rbidly obese HEENT: Pupils are round and equally reacting to light. EOMI. No scleral icterus. No conjunctival pallor. Normocephalic, atraumatic. No pharyngeal erythema. No thyromegaly. CARDIOVASCULAR: S1 and S2 present. No murmurs, rubs, or gallops. PULMONARY: Chest is clear to auscultation, no wheezing or crackles. ABDOMEN: Soft, nontender, nondistended, normoactive bowel sounds. No palpable o rganomegaly. MUSCULOSKELETAL: No joint swelling or deformity. EXTREMITIES: No cyanosis, clubbing, or pedal edema. NEUROLOGICAL: Gross neurological examination did not reveal any focal deficits. SKIN: No rashes. no petechiae. - Labs CBC & Chem 7: 10/09/21 07:25 10/09/21 07:25 Labs: Abnormal Lab Results - Last 24 Hours (Table) 10/09/21 10/09/21 10/10/21 Range/Units 16:33 19:52 07:03 POC Glucose (mg/dL) 149 H 186 H 174 H (70-110) mg/dL Assessment and Plan Assessment: Transient period of weakness and confusion related to hyperglycemia on admission. 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 Also there is a concern of stroke on CT imaging. A. fib. I had lengthy discussion with the patient, daughter at bedside as well as neurologist also in the room. Both patient and daughter have refused Eliquis recommended by cloth weaver, risks and benefits are explained for details, neurologist and cloth weaver team are aware, neurologist recommended Plavix as well I discussed these recommendations with the patient and daughter they going to think about it, but so far we don't want Plavix to be started on to continue with aspirin which he was taking at home Continue with aspirin. Tool Room Attendant signed off. Neurologist recommended no further workup Patient sugar has been controlled today with Levemir 10 units (was taken 90 units at home) +20 units with meals, also 2-3 extra units per sliding scale. Labs and medication were reviewed.. Continue same treatment. Continue with symptomatic treatment. Resume home medication. Monitor lytes and vitals. DVT and GI prophylaxis. Further recommendations as per clinical course of the patient DVT prophylaxis: Subcutaneous heparin GI Prophylaxis: Pepcid PT/OT: Pending Prognosis is guarded
[2021-10-10 16:35] LABS: Glucose,Whole Blood 158 mg/dL (70-110)
[2021-10-10] MEDS: CYANOCOBALAMIN 1,000 MCG/ML 1 ML VIAL IM SCH (16:54)
[2021-10-10 20:30] LABS: Glucose,Whole Blood 87 mg/dL (70-110)
[2021-10-11] MEDS: hydrALAZINE HCL 25 MG TAB PO PRN ×2 (05:33→11:39)
[2021-10-11 06:21] LABS: Glucose,Whole Blood 178 mg/dL (70-110)
[2021-10-11] MEDS ORDERED: INSULIN DETEMIR (LEVEMIR) 100 UNIT/ML SYR SQ SCH (07:00)
[2021-10-11 07:05] LABS: Glucose,Whole Blood 239 mg/dL (70-110)
[2021-10-11] MEDS: INSULIN ASPART (NovoLOG) 100 UNIT/ML VIAL SQ SCH ×6 (07:07→17:12)
[2021-10-11 08:10] VITALS: RESP 16
[2021-10-11] MEDS: MULTIVITAMINS, THERA 1 EACH TAB PO SCH (08:57)
[2021-10-11] MEDS: amLODIPine 5 MG TAB PO SCH (08:57)
[2021-10-11] MEDS: ASPIRIN 325 MG TAB PO SCH (08:57)
[2021-10-11] MEDS: FINASTERIDE 5 MG TAB PO SCH (08:58)
[2021-10-11] MEDS: TAMSULOSIN 0.4 MG CAP.ER.24H PO SCH (08:58)
[2021-10-11] MEDS: GABAPENTIN 100 MG CAP PO SCH ×2 (08:58→17:11)
[2021-10-11] MEDS: hydrALAZINE HCL 25 MG TAB PO SCH (08:58)
[2021-10-11] MEDS: FAMOTIDINE 20 MG TAB PO SCH (08:58)
[2021-10-11] MEDS: SERTRALINE 50 MG TAB PO SCH (08:58)
[2021-10-11] MEDS ORDERED: CYANOCOBALAMIN 500 MCG TAB PO SCH (09:00)
--- NOTE | 2021-10-11 10:30 | CDI ---
Documentation Clarification Form Date: 10/11/2021 10:06:05 AM From: Laura Hoover RN CCDS Admit Date: 10/07/2021 05:39:00 PM Patient Name: Jeferson Hughes Visit Number: [id number] Discharge Date: ATTENTION: The Clinical Documentation Specialists (CDI) and [facility] Coding Staff appreciate your assistance in clarifying documentation. Please respond to the clarification below the line at the bottom and electronically sign. The CDI & [facility] Coding staff will review the response and follow-up if needed. Please note: Queries are made part of the Legal Health Record. If you have any questions, please contact the author of this message via ITS. Dr. Rg Claros Sheet Your patient has the documented symptom of Transient period of confusion related to hyperglycemia on admission 10/10, Medicine progress note 10/09. Additional clarification regarding the etiology/cause of this symptom is requested. History/Risk Factors: 86-year-old male presents to the ED Clinical Indicators: Labs: Glucose 10/07 16:04 87mb/dl X Ray: 10/07 Unchanged cardiomegaly Brain MRI: 10/08 Diffuse cerebral atrophy. Wedge shaped area of signal on the FLAIR images lateral right temporal lobe could be subacute infarct. Hydrocephalus with linear white matter signal changes around the ventricles probably related to nonobstructive hydrocephalus. Treatment: Consistent carbohydrate diet; Brain CT and MRI Please clarify the etiology of the symptom of Confusion: [ ] Metabolic Encephalopathy due to hypoglycemia [ ] Other condition (please specify) [ ] Unable to determine (Template Last Revised: May 2020) Metabolic Encephalopathy due to hypoglycemia . Resolved MTDD
[2021-10-11 11:56] LABS: Glucose,Whole Blood 167 mg/dL (70-110)
--- NOTE | 2021-10-11 15:52 | P.DS ---
Providers Date of admission: 10/07/21 17:39 Attending physician: Yuliya Mijares Consults: 10/07/21 17:40 Consult Physician Urgent Consulting Provider: Cayetano Santos Consult Reason/Comments: weak eval for cva v nph v other Do you want consulting provider notified?: Yes 10/08/21 06:12 Consult Physician Routine Consulting Provider: Mery Dorsey Consult Reason/Comments: ekg changes Do you want consulting provider notified?: Yes, Notify in am Primary care physician: Donna Jimenez Hospital Course: : diagnoses Transient period of weakness and confusion related to hypoglycemia on admission. 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 Improved Low normal vitamin B12, replaced upon discharge History of coronary artery disease Diabetes mellitus, with hyperglycemia on admission Hypertension History of her chronic right leg cellulitis Morbid obesity hospital course: his is a pleasant 80 years old male with past medical history of Atrial Fibrillation, not on anticoagulation at home, Coronary Artery Disease , Diabetes Mellitus, Hearing Disorder / Deafness, Hypertension, , Chronic right leg cellulitis Patient is fully awake and oriented, he states he lives in his home by himself, he states someone called the ambulance for him because he was not acting right. On admission he was hypoglycemic with glucose 60, at home he was taken Levemir 45 units twice a day plus NovoLog insulin 20 units with meals. Here in the hospital with large his Levemir doses to 10 units twice a day with NovoLog kept at 20 units with meals. His glucose was controlled, sometimes goes down to 80s. Hemoglobin A1c 7.6% Patient has been evaluated by neurologist and biological science aide. MRI of the brain showing right temporal lobe infarct felt to be Possible acute versus subacute per radiologist however neurologist and reviewed the image he thinks is more chronic. Also MRI of the brain showed evidence of hydrocephalus. Both biological science aide and neurologist recommended anticoagulation with Eliquis, patient and daughter declined for risk of recurrent falling. Then the neurologist recommended adding Plavix to his aspirin, and again the patient and daughter declined for the same reason area patient will be discharged on home dose of aspirin. Risk of recurrent stroke versus bleeding are explained extensively in details to the patient and daughter, upon the request patient will stay on aspirin only. Also the neurologist recommended the patient follow-up outpatient regarding his normal pressure hydrocephalus for possible cerebrospinal fluid tap with possible shunt. He recommended neurologist and/or neurosurgeon evaluation as an outpatient. Also patient started on vitamin B12 replacement therapy, patient will need to recheck his level as an outpatient Patient is back to his basic state. On the day of discharge she denies any chest pain or dyspnea, no change in urine or bowel habits. No fever. No headache. Actually his left sided weakness feels better for him and his left shoulder pain is only minimal and he is moving upper extremity normally. Patient was cleared for discharge by both biological science aide and neurologist Patient will benefit from he is here for subacute rehab Problems and management plan were discussed with the patient and he verbalized understanding and acceptance Patient was found stable and can be discharged home however he needs follow-up as an outpatient. Patient was instructed to follow up with PCP within one week and patient agrees Physical exam -Gen: patient is a AAOx3, no distress. Obese CVS: S1-S2, RRR, no murmur Lungs: B/L CTA, no wheezing Abdomen: soft, no distention, no tenderness, positive bowel sounds Extremity: no leg edema or induration -Neuro: Very mild left sided weakness, improving. Cranial nerves are grossly intact. Rest of exam shows strength 5/5 and sensation is intact. Time spent more than 35 minutes Plan - Discharge Summary Discharge Rx Participant: No New Discharge Prescriptions: No Action Tamsulosin HCl [Flomax] 0.4 mg PO DAILY Sertraline [Zoloft] 50 mg PO DAILY Melatonin 5 mg PO HS PRN tablet PRN Reason: Insomnia INSULIN ASPART (NovoLOG) [NovoLOG (formulary)] 20 unit SQ TID-W/MEALS ml Gabapentin [Neurontin] 100 mg PO TID #6 cap Multivitamins, Thera [Multivitamin (formulary)] 1 tab PO DAILY [place]-3 Fatty Acids/Fish Oil [Fish Oil 1,000 mg Softgel] 1 cap PO DAILY Finasteride [Proscar] 5 mg PO DAILY Aspirin EC [Ecotrin Low Dose] 81 mg PO DAILY Diphenox-Atrop 2.5-0.025 mg [Lomotil] 1 tab PO QID PRN PRN Reason: Diarrhea Insulin Detemir [Levemir Flextouch Pen] 45 units SQ BID Liraglutide [Victoza 3-Jarred] 1.2 mg SQ DAILY Discharge Medication List Aspirin EC [Ecotrin Low Dose] 81 mg PO DAILY 02/22/21 [History] Finasteride [Proscar] 5 mg PO DAILY 02/22/21 [History] [place]-3 Fatty Acids/Fish Oil [Fish Oil 1,000 mg Softgel] 1 cap PO DAILY 02/22/21 [History] Sertraline [Zoloft] 50 mg PO DAILY 02/22/21 [History] Tamsulosin HCl [Flomax] 0.4 mg PO DAILY 02/22/21 [History] Gabapentin [Neurontin] 100 mg PO TID #6 cap 02/25/21 [Rx] INSULIN ASPART (NovoLOG) [NovoLOG (formulary)] 20 unit SQ TID-W/MEALS ml 02/25/21 [Rx] Melatonin 5 mg PO HS PRN tablet 02/25/21 [Rx] Diphenox-Atrop 2.5-0.025 mg [Lomotil] 1 tab PO QID PRN 10/07/21 [History] Insulin Detemir [Levemir Flextouch Pen] 45 units SQ BID 10/07/21 [History] Liraglutide [Victoza 3-Jarred] 1.2 mg SQ DAILY 10/07/21 [History] Multivitamins, Thera [Multivitamin (formulary)] 1 tab PO DAILY 10/07/21 [Hi story] Follow up Appointment(s)/Referral(s): Donna Jimenez DO [Primary Care Provider] - 1-2 days Activity/Diet/Wound Care/Special Instructions: for your ((normal pressure hydrocephalus)) and the consideration of follow-up with a neurologist and neurosurgeon for a large volume tap and if there is no improvement for a consideration of [employer] shunt heart healthy diet activity as tolerated
[2021-10-11 16:52] LABS: Glucose,Whole Blood 239 mg/dL (70-110)
[2021-10-11 16:54] VITALS: BP 204/84; PULSE 68; TEMP 97.5
== END 2021-10-11 17:24 | DRG 637 ==
LOC: EC 15:43 → 3SCARD 17:39
PROVIDERS: ADMIT Hospitalist; ATTEND Hospitalist
DX: E10.649 Type 1 diabetes mellitus with hypoglycemia without coma (principal); G93.41 Metabolic encephalopathy; I69.354 Hemiplegia and hemiparesis following cerebral infarction affecting left non-dominant side; G91.2 (Idiopathic) normal pressure hydrocephalus; L03.115 Cellulitis of right lower limb; I48.19 Other persistent atrial fibrillation; Z20.822 Contact with and (suspected) exposure to COVID-19; E10.65 Type 1 diabetes mellitus with hyperglycemia; I27.20 Pulmonary hypertension, unspecified; E10.40 Type 1 diabetes mellitus with diabetic neuropathy, unspecified; R29.6 Repeated falls; E66.01 Morbid (severe) obesity due to excess calories; H91.90 Unspecified hearing loss, unspecified ear; I10 Essential (primary) hypertension; I25.10 Atherosclerotic heart disease of native coronary artery without angina pectoris; I25.2 Old myocardial infarction; Z79.4 Long term (current) use of insulin; Z79.82 Long term (current) use of aspirin; Z79.899 Other long term (current) drug therapy; Z87.891 Personal history of nicotine dependence; Z91.81 History of falling; Z88.0 Allergy status to penicillin; Z88.2 Allergy status to sulfonamides
CPT/HCPCS: 36415; 70450; 70551; 71046; 80048; 80053; 80061; 81001; 82607; 82746; 83036; 83605; 83735; 84439; 84443; 84481; 84484; 85025; 85610; 85730; 87635; 93005; 93306; 93880; 99291